=== PATIENT | female | born 1965 | race Caucasian/White ===

== ENCOUNTER 2017-12-24 16:26 | Emergency (ER) | payer OTHER, SELFPAY ==
[2017-12-24 16:32] VITALS: BP 174/100; PULSE 79; RESP 20; TEMP 36.4; O2SAT 98; BMI 29.2
[2017-12-24 17:02] VITALS: BP 147/74; PULSE 72; RESP 18; O2SAT 100
--- NOTE | 2017-12-24 17:22 | DI.RAD.S_ITS ---
PROCEDURE: XR CHEST 2V INDICATIONS: chest pain TECHNIQUE: 2 views of the chest were acquired. COMPARISON: None. FINDINGS: Surgical changes and devices: None. Lungs and pleura: No pleural effusions or pneumothorax. Lungs are clear. Mediastinum: Mediastinal contours are normal. Heart size is normal. Bones and chest wall: No suspicious bony abnormalities. Soft tissues appear unremarkable. IMPRESSION: No acute cardiopulmonary findings. Dictated by: Denise Arevalo M.D. on 12/24/2017 at 17:58 Approved by: Denise Arevalo M.D. on 12/24/2017 at 17:58
[2017-12-24 17:39] LABS: Add Manual Diff / Slide Review NO; Basophils Percent Auto 0.7 % (0-2); Eosinophils Percent Auto 0.9 % (2-4); Hematocrit 42.5 % (36-46); Hemoglobin 14.7 g/dL (12.0-16.0); Mean Corpuscular HGB Conc 34.6 % (30-36); Mean Corpuscular Hemoglobin 30.6 PG (26-34); Mean Corpuscular Volume 88.7 fL (80-100); Monocytes Percent Auto 5.7 % (3-14); Neutrophils Absolute Auto 4000 /uL (3000-5900); Neutrophils Percent Auto 62.7 % (50-75); Platelet Count 278 X10^3/uL (150-400); Red Blood Cell Count 4.79 X10^6/uL (4.0-5.2); Red Cell Distribution Width 13.3 % (11.6-14.8); White Blood Cell Count 6.4 X10^3/uL (4.5-11.0)
[2017-12-24 17:44] LABS: BUN Creatinine Ratio 18.6 (6-22); Blood Urea Nitrogen 13 mg/dL (7-17); Calcium 9.4 mg/dL (8.4-10.2); Carbon Dioxide 24 mmol/L (22-32); Chloride 105 mmol/L (98-107); Estimated Glomerular Filt Rate > 60.0 mL/min (>60); Glucose 104 mg/dL (70-100); HEMOLYSIS < 15 (0-50); Potassium 3.9 mmol/L (3.4-5.1); Sodium 142 mmol/L (137-145)
[2017-12-24 17:46] VITALS: BP 145/84; PULSE 65; RESP 19; O2SAT 99
[2017-12-24 17:57] LABS: Troponin I < 0.012 ng/mL (0.01-0.034)
[2017-12-24 18:11] VITALS: BP 149/78; PULSE 66; RESP 16; O2SAT 98
[2017-12-24 19:03] VITALS: BP 169/81; PULSE 75; RESP 17; O2SAT 97
--- NOTE | 2017-12-24 19:07 | ED.CHESTPAIN ---
HPI - Chest Pain General Chief Complaint: Chest Pain Stated Complaint: CHEST PAIN,ELEVATED BP,SOB Time Seen by Provider: 12/24/17 16:55 History of Present Illness HPI narrative: HPI 52-year-old female presents for evaluation of approximately one day of poorly characterized chest pain, of sensation anxiety, and a concern that she may have elevated blood pressure. Patient unable to identify any provoking or relieving factors. Notes that she is under increased significant stress recently due to the anticipated impending of an aunt. Patient is a history of hypertension, is taking one of her to prescribed anti-hypertensives. Also notes a history of anxiety. Patient denies recent immobilization, leg trauma, estrogen use, surgery in the last four weeks, hemoptysis, or malignancy in the last 6 months. M/S/F/SocHx notable for: please see HPI; remainder reviewed with patient and in chart. ROS: Negative constitutional, eye, cardiovascular, pulmonary, GI, , MSK, skin, neurologic, psychiatric, endocrine unless noted in the HPI. Exam Gen: Pleasant, non-toxic appearing, resting comfortably. HEENT: NC, AT, PEERL, EOMI. Resp: Clear to auscultation bilaterally, normal work of breathing. Card: RRR with no M/R/G, no crackles in lung bases, no pedal edema, no JVD appreciated. GI: NT/ND Vascular: Both ankles, calves, and thighs of equal size, no calf tenderness to palpation bilaterally. MSK: No chest wall TTP. No visible deformities, strength and tone WNL. Skin: Normal color with no visible lesions. Neuro: AO x 3, no facial asymmetry, vision and hearing WNL. Psych: Mood and affect appropriate. Labs / Imaging (pertinent): WBC 6.4, Hb 14.7, Na 142, K 3.9. Troponin <0.012 EKG: SR at 78 bpm, no DC segment depressions, no new ST segment changes, new LBBB, or T-wave changes that would suggest acute ischemia. CXR: No acute cardiopulmonary disease process. MDM Previous chart, nursing note, and vitals reviewed. A: 52-year-old female presents for evaluation of approximately one day of poorly characterized chest pain, of sensation anxiety, and a concern that she may have elevated blood pressure. DDx and Evaluation: * ACS - doubt ACS given a non-ischemic EKG and a negative troponin greater than six hours from maximal symptom onset. * UA - unlikely given the atypical history and alternate diagnosis. HEART score 2 (Hx - 0, EKG - 0, age - 1, risk factors - 1, troponin - 0; 30 day MACE: less than or equal to 1.7%). * Pericarditis - consider pericarditis unlikely given the lack of DC segment depressions as well as the absence of diffuse ST-segment elevations, lack of reduction of pain when supine, and lack of a friction rub. * Myocarditis - unlikely given the negative troponin and an EKG without characteristic DC-segment or ST-segment changes. * Dissection - dissection is unlikely given symptoms, and lack of mediastinal widening. * PE - low clinical suspicion given history and alternate diagnosis, further risk stratification (e.g.) Well's not indicated. * Mediastinal Air - no evidence by CXR or auscultation. * Pneumothorax - no evidence by CXR or physical exam. * MSK - doubt given lack of reproducibility on exam. * Endocarditis - no identifiable risk factors, patient afebrile, no new murmurs appreciated on exam; doubt. * GI (Esophageal rupture, GERD) - esophageal rupture effectively excluded given the lack of mediastinal widening, non-toxic appearance, and lack of identifiable risk factors.. ED Course: Vital signs remained stable and within clinically acceptable limits. Disposition: Discharge with PCP follow up. Return to care precautions given verbally and in writing. Impression: Chest Pain. (please reference below for remainder of encounter information) Related Data Home Medications Medication Instructions Recorded Confirmed amlodipine [Norvasc] #0 02/23/16 amlodipine [Norvasc] 10 mg PO QDAY #0 07/22/16 metoprolol succinate [Toprol XL] 50 mg PO QDAY #0 07/22/16 Allergies Allergy/AdvReac Type Severity Reaction Status Date / Time Sulfa (Sulfonamide Allergy Mild Verified 12/24/17 16:38 Antibiotics) [SULFA (SULFONAMIDE ANTIBIOTICS)] [facility] Social History Smoking Status: Never smoker Exam Initial Vital Signs Initial Vital Signs: Vital Signs Temperature 97.6 F 12/24/17 16:32 Pulse Rate 79 12/24/17 16:32 Respiratory Rate 20 12/24/17 16:32 Blood Pressure 174/100 H 12/24/17 16:32 Pulse Oximetry 98 12/24/17 16:32 Course Orders Ordered: ED Orders 12/24/17 17:05 Basic Metabolic Panel Stat Complete Blood Count AUTO DIFF Stat Troponin I Stat 12/24/17 17:22 XR chest 2V Stat Vital Signs - 8 hr 12/24/17 16:32 12/24/17 17:02 12/24/17 17:46 Temperature 97.6 F Pulse Rate 79 72 65 Respiratory Rate 20 18 19 Blood Pressure 174/100 H Blood Pressure [Right Arm] 147/74 H 145/84 H Pulse Oximetry 98 100 99 12/24/17 18:11 12/24/17 19:03 Temperature Pulse Rate 66 75 Respiratory Rate 16 17 Blood Pressure Blood Pressure [Right Arm] 149/78 H 169/81 H Pulse Oximetry 98 97 MDM - Chest Pain Lab Data Result diagrams: 12/24/17 17:05 12/24/17 17:05 Lab Results 12/24/17 12/24/17 Range/Units 17:05 17:05 WBC 6.4 (4.5-11.0) X10^3/uL RBC 4.79 (4.0-5.2) X10^6/uL Hgb 14.7 (12.0-16.0) g/dL Hct 42.5 (36-46) % MCV 88.7 (80-100) fL MCH 30.6 (26-34) PG MCHC 34.6 (30-36) % RDW 13.3 (11.6-14.8) % Plt Count 278 (150-400) X10^3/uL Neut % (Auto) 62.7 (50-75) % Lymph % (Auto) 30.0 (25-40) % Harmon % (Auto) 5.7 (3-14) % Eos % (Auto) 0.9 L (2-4) % Baso % (Auto) 0.7 (0-2) % Neut # (Auto) 4000 (5780-4741) /uL Sodium 142 (137-145) mmol/L Potassium 3.9 (3.4-5.1) mmol/L Chloride 105 (98-107) mmol/L Carbon Dioxide 24 (22-32) mmol/L BUN 13 (7-17) mg/dL Creatinine 0.70 (0.52-1.04) mg/dL Estimated GFR > 60.0 (>60) mL/min BUN/Creatinine Ratio 18.6 (6-22) Glucose 104 H (70-100) mg/dL Calcium 9.4 (8.4-10.2) mg/dL Troponin I < 0.012 (0.01-0.034) ng/mL Discharge Plan Departure Prescriptions: No Action amlodipine [Norvasc] 5 MG tablet Qty: 0 RF: 0 metoprolol succinate [Toprol XL] 50 MG tablet extended release 24 hr 50 mg PO QDAY Qty: 0 RF: 0 amlodipine [Norvasc] 5 MG tablet 10 mg PO QDAY Qty: 0 RF: 0
[2017-12-24 19:34] VITALS: BP 137/80; PULSE 73; RESP 18; O2SAT 99
== END 2017-12-24 19:35 | disposition home or self-care (01) ==
PROVIDERS: Emergency Provider Emergency Medicine; PCP Family Medicine
DX: R07.9 Chest pain, unspecified (principal)
CPT/HCPCS: 36591; 71046; 80048; 84484; 85025; 93005; 99283; 99285

== ENCOUNTER 2020-07-30 20:38 | Observation (INO) | payer OTHER, SELFPAY ==
[2020-07-30] VITALS (8 sets, daily range): BP systolic 125–167; BP diastolic 59–93; PULSE 64–82; RESP 14–28; TEMP 36.8; O2SAT 98–100; BMI 28.3
--- NOTE | 2020-07-30 20:55 | DI.CT.S_ITS ---
PROCEDURE: CT STROKE INDICATIONS: right arm heavy,tingling lips earlier TECHNIQUE: Noncontrast 4.5 mm thick angled axial sections acquired from the foramen magnum to the vertex, with coronal reformats. For radiation dose reduction, the following was used: automated exposure control, adjustment of mA and/or kV according to patient size. COMPARISON: None. FINDINGS: Image quality: Excellent. CSF spaces: Basal cisterns are patent. No extra-axial fluid collections. Ventricles are normal in size and shape. Brain: No midline shift. No intracranial masses or hemorrhage. Mina-white matter interface is normal. Skull and face: Calvarium and visualized facial bones are intact, without suspicious lesions. Sinuses: Visualized sinuses and mastoids are clear. IMPRESSION: No acute intracranial abnormality. This study fulfills neurological imaging criteria for inclusion or exclusion of acute stroke therapies based on available published neurological imaging guidelines. Dictated by: Jose Del Valle M.D. on 07/30/2020 at 21:34 Approved by: Jose Del Valle M.D. on 07/30/2020 at 21:34
[2020-07-30 21:00] LABS: Add Manual Diff / Slide Review NO; Basophils Absolute Auto 100 /uL (0-100); Basophils Percent Auto 0.9 % (0-2); Eosinophils Absolute Auto 200 /uL (0-450); Eosinophils Percent Auto 2.4 % (2-4); Hematocrit 42.2 % (36-46); Hemoglobin 14.3 g/dL (12.0-16.0); Lymphocytes Absolute Auto 2600 /uL (1100-4500); Mean Corpuscular Hemoglobin 30.5 PG (26-34); Mean Corpuscular Volume 89.8 fL (80-100); Monocytes Absolute Auto 400 /uL (0-900); Monocytes Percent Auto 6.6 % (3-14); Neutrophils Absolute Auto 3300 /uL (1500-7000); Neutrophils Percent Auto 50.1 % (50-75); Platelet Count 299 X10^3/uL (150-400); Red Cell Distribution Width 13.1 % (11.6-14.8); White Blood Cell Count 6.5 X10^3/uL (4.5-11.0)
[2020-07-30 21:10] LABS: Prothrombin Time 11.5 SECONDS (10.1-12.7)
[2020-07-30 21:13] LABS: Blood Urea Nitrogen 16 mg/dL (7-17); Calcium 9.7 mg/dL (8.4-10.2); Carbon Dioxide 26 mmol/L (22-32); Chloride 104 mmol/L (98-107); Estimated Glomerular Filt Rate > 60.0 mL/min (>60); Glucose 117 mg/dL (70-100); PTT Partial Thromboplastin Tim 35 SECONDS (26.4-36.2); Potassium 4.1 mmol/L (3.4-5.1); Sodium 137 mmol/L (137-145)
[2020-07-30 21:21] LABS: HEMOLYSIS 58 (0-50)
[2020-07-30] MEDS: SODIUM CHLORIDE 0.9% 1,000 ML 150 ML IV (21:38)
--- NOTE | 2020-07-30 22:04 | ED.NEUROSD ---
HPI - Neuro Symptoms/Deficit General Chief Complaint: Neuro Symptoms/Deficit Stated Complaint: elevated BP, shivering, rt arm numbness Time Seen by Provider: 07/30/20 20:40 Source: patient Mode of arrival: Ambulatory Limitations: no limitations History of Present Illness HPI Narrative: 55-year-old female nonsmoker with history of hypertension and anxiety presents with her in the chief complaint of neurologic symptoms that started just prior to arrival. She was driving her car when she noted to have some tingling and heaviness of her right arm, stating it felt like it was hard to use. She feels slightly dizzy and states this is not due to any change of position, moving her head and not affected by closing her eyes. She denies any blurred vision, trouble with speech or other symptoms. Her right arm weakness had improved prior to her arrival. She denies any recent injury or trauma. She has had no fever chills. She denies any neck pain. Onset (ago): hour(s) Timing confirmed by: spouse Location: right arm Severity: mild Quality: weak and numb Relieving factors: none Exacerbating factors: none Context: sudden onset On Anticoagulants: No Associated symptoms: denies other symptoms Treatments Prior to Arrival: none Related Data Home Medications Medication Instructions Recorded Confirmed amlodipine [Norvasc] 10 mg PO QDAY #0 07/22/16 07/31/20 metoprolol succinate [Toprol XL] 25 mg PO QDAY #0 07/22/16 07/31/20 Allergies Allergy/AdvReac Type Severity Reaction Status Date / Time Sulfa (Sulfonamide Allergy Mild Verified 07/30/20 20:50 Antibiotics) [SULFA (SULFONAMIDE ANTIBIOTICS)] Review of Systems Constitutional Constitutional: Denies chills, Denies fatigue, Denies fever(s), Denies frequent falls, Denies lethargy and Reports weakness Eyes Eyes: Denies change in vision, Denies eye discharge, Denies irritation and Denies loss of vision ENT Ears, Nose, Mouth, and Throat: Denies change in voice, Denies dizziness, Denies neck pain, Denies sore throat and Denies throat swelling Cardiovascular Cardiovascular: Denies chest pain, Denies irregular heart rhythm, Denies lightheadedness, Denies palpitations, Denies dyspnea, Denies dyspnea on exertion and Denies orthopnea Respiratory Respiratory: Denies cough, Denies dyspnea, Denies dyspnea on exertion and Denies wheezing Gastrointestinal Gastrointestinal: Denies abdominal pain, Denies change in bowel habits, Denies diarrhea, Denies nausea and Denies vomiting Musculoskeletal Musculoskeletal: Denies neck pain and Reports numbness Integumentary/Breasts Skin/Breast: Denies pruritus, Denies erythema, Denies rash and Denies wounds Neurologic Neurologic: Denies behavioral changes, Denies confusion, Denies dizziness, Denies frequent falls, Denies loss of vision, Reports numbness and Reports weakness Psychiatric Psychiatric: Denies anxiety, Denies behavioral changes, Denies confusion, Denies depression, Denies homicidal ideation and Denies suicidal ideation Endocrine Endocrine: Denies fatigue, Denies flushing and Denies palpitations Hematologic/Lymphatic Hematologic/Lymphatic: Denies easy bruising On Anticoagulants: No Allergic/Immunologic Allergic/Immunologic: Denies urticaria, Denies throat swelling and Denies wheezing Patient History Social History household members: spouse Smoking Status: Never smoker alcohol intake: current Smoking Status: Never smoker alcohol intake frequency: 0-2 drinks per day Substance Use Type: does not use Exam Narrative Exam Narrative: GENERAL: [55] year old patient appears stated age. Well-nourished, well-developed patient, in mild distress. Anxious HEAD: Atraumatic. Normocephalic. EYES: Pupils equal round and reactive. Extraocular motions intact. No scleral icterus. No injection or drainage. ENT: Nose without bleeding, purulent drainage. Throat without erythema, tonsillar hypertrophy or exudate. Airway patent. NECK: Trachea midline. Non tender CARDIOVASCULAR: Regular rate and rhythm without murmurs, gallops, or rubs. RESPIRATORY: Clear to auscultation. Breath sounds equal bilaterally. No wheezes, rales, or rhonchi. GASTROINTESTINAL: Abdomen soft, non-tender, nondistended. EXTREMITIES: No edema or joint tenderness. BACK: Nontender without deformity or crepitance. No flank tenderness. NEURO: AOx3. SKIN: No rash or erythema of visible areas Initial Vital Signs Initial Vital Signs: Vital Signs Temperature 98.2 F 07/30/20 20:40 Pulse Rate 81 07/30/20 20:40 Respiratory Rate 14 07/30/20 20:40 Blood Pressure 167/93 H 07/30/20 20:40 Pulse Oximetry 99 07/30/20 20:40 Scores ABCD2 Age >= 60 years: no Initial BP. Either SBP >= 140 or DBP >= 90.: yes Clinical features of the TIA: unilateral weakness Duration of symptoms: 10-59 minutes History of diabetes: no ABCD2 Score: 4 NIH Stroke Scale Level of Conciousness: Alert, keenly responsive Ask month/age: Answers both questions correctly. Open/close eyes, close hand: Performs both tasks correctly Best gaze horizontal: Normal Visual briones: No visual loss Facial palsy: Normal symetrical movement Left arm drift: No drift for full 10 sec Right arm drift: No drift for full 10 sec Left leg drift: No drift for full 5 sec Right leg drift: No drift for full 5 sec Limb ataxia: Absent Sensory on face/arms/legs: Normal, no sensory loss Best language: No aphasia, normal Dysarthria: Normal Extinction or inattention: No abnormality Total NIH Stroke scale score: 0 Course Orders Ordered: ED Orders 07/30/20 22:53 COVID19 Stat Sodium Chloride (Normal Saline 0.9%) 1,000 mls @ 150 mls/hr IV CONT IRENE Last Admin: 07/31/20 05:20 Dose: 150 mls/hr Documented by: Infusion: 07/31/20 05:20 Dose: 0 mls/hr Documented by: Infusion: 07/30/20 23:19 Dose: 0 mls/hr Documented by: Admin: 07/30/20 21:38 Dose: 150 mls/hr Documented by: ALBA Discontinued Medications Aspirin (Aspirin 81 Mg Chew Tab) 324 mg PO NOW ONE Stop: 07/30/20 22:49 Last Admin: 07/30/20 22:53 Dose: 324 mg Documented by: ALBA Influenza Virus Vaccine (Influenza Vaccine 0.5 Ml Syringe) 0.5 ml IM .ONCE ONE Stop: 07/30/20 23:44 Consultations Consultation #1: call to oncall provider for PCP. Happy to accept on her service. Vital Signs Vital signs: Vital Signs - 8 hr 07/30/20 22:30 Pulse Rate 76 Respiratory Rate 25 H Blood Pressure 134/68 Pulse Oximetry 99 MDM - Neuro Symptoms/Deficit Lab Data Result diagrams: 07/30/20 20:53 07/30/20 20:53 Labs: Lab Results 07/30/20 07/30/20 07/30/20 Range/Units 20:53 20:53 20:53 WBC 6.5 (4.5-11.0) X10^3/uL RBC 4.70 (4.0-5.2) X10^6/uL Hgb 14.3 (12.0-16.0) g/dL Hct 42.2 (36-46) % MCV 89.8 (80-100) fL MCH 30.5 (26-34) PG MCHC 34.0 (30-36) % RDW 13.1 (11.6-14.8) % Plt Count 299 (150-400) X10^3/uL Neut % (Auto) 50.1 (50-75) % Lymph % (Auto) 40.0 (25-40) % Eagle % (Auto) 6.6 (3-14) % Eos % (Auto) 2.4 (2-4) % Baso % (Auto) 0.9 (0-2) % Neut # (Auto) 3300 (7556-5087) /uL Lymph # (Auto) 2600 (7522-5193) /uL Eagle # (Auto) 400 (0-900) /uL Eos # (Auto) 200 (0-450) /uL Baso # (Auto) 100 (0-100) /uL PT 11.5 (10.1-12.7) SECONDS INR 1.0 (0.9-1.3) APTT 35 (26.4-36.2) SECONDS Sodium 137 (137-145) mmol/L Potassium 4.1 (3.4-5.1) mmol/L Chloride 104 (98-107) mmol/L Carbon Dioxide 26 (22-32) mmol/L BUN 16 (7-17) mg/dL Creatinine 0.80 (0.52-1.04) mg/dL Estimated GFR > 60.0 (>60) mL/min BUN/Creatinine Ratio 20.0 (6-22) Glucose 117 H (70-100) mg/dL Calcium 9.7 (8.4-10.2) mg/dL SARS-CoV-2 (PCR) (Negative) 07/30/20 Range/Units 22:53 WBC (4.5-11.0) X10^3/uL RBC (4.0-5.2) X10^6/uL Hgb (12.0-16.0) g/dL Hct (36-46) % MCV (80-100) fL MCH (26-34) PG MCHC (30-36) % RDW (11.6-14.8) % Plt Count (150-400) X10^3/uL Neut % (Auto) (50-75) % Lymph % (Auto) (25-40) % Eagle % (Auto) (3-14) % Eos % (Auto) (2-4) % Baso % (Auto) (0-2) % Neut # (Auto) (5199-0757) /uL Lymph # (Auto) (6225-8329) /uL Eagle # (Auto) (0-900) /uL Eos # (Auto) (0-450) /uL Baso # (Auto) (0-100) /uL PT (10.1-12.7) SECONDS INR (0.9-1.3) APTT (26.4-36.2) SECONDS Sodium (137-145) mmol/L Potassium (3.4-5.1) mmol/L Chloride (98-107) mmol/L Carbon Dioxide (22-32) mmol/L BUN (7-17) mg/dL Creatinine (0.52-1.04) mg/dL Estimated GFR (>60) mL/min BUN/Creatinine Ratio (6-22) Glucose (70-100) mg/dL Calcium (8.4-10.2) mg/dL SARS-CoV-2 (PCR) Negative (Negative) Urine Dip Bedside Urine Glucose Negative Bedside Urine Bilirubin - Negative Bedside Urine Ketone - Negative Urine Specific [place] 1.010 Bedside Urine Occult Blood - Negative Bedside Urine pH 6.5 Bedside Urine Protein - Negative Bedside Urine Urobilinogen - Negative Bedside Urine Nitrite - Negative Bedside Urine Leukocytes - Negative Esterase Imaging Data CT scan - head: Radiologist's Impression: [address] [id number] Scan ReportSigned Patient: Marilou Zhao LMR#: [id number]: [id number]:[id number]/Sex: 55 / FDate of Service: 07/30/20Loc: EDAccession Number: [id number] Procedure: CT Stroke Ordering Provider: Aravind Herrera D.O. PROCEDURE: CT STROKE INDICATIONS: right arm heavy,tingling lips earlier TECHNIQUE: Noncontrast 4.5 mm thick angled axial sections acquired from the foramen magnum to the vertex, with coronal reformats. For radiation dose reduction, the following was used: automated exposure control, adjustment of mA and/or kV according to patient size. COMPARISON: None. FINDINGS: Image quality: Excellent. CSF spaces: Basal cisterns are patent. No extra-axial fluid collections. Ventricles are normal in size and shape. Brain: No midline shift. No intracranial masses or hemorrhage. Mina-white matter interface is normal. Skull and face: Calvarium and visualized facial bones are intact, without suspicious lesions. Sinuses: Visualized sinuses and mastoids are clear. IMPRESSION: No acute intracranial abnormality. This study fulfills neurological imaging criteria for inclusion or exclusion of acute stroke therapies based on available published neurological imaging guidelines. Dictated by: Jose Del Valle M.D. on 07/30/2020 at 21:34 Approved by: Jose Del Valle M.D. on 07/30/2020 at 21:34 Discharge Plan Departure Patient Disposition: Admitted as Observation Clinical Impression: Transient cerebral ischemia Qualifiers: Transient cerebral ischemia type: unspecified Qualified Code(s): G45.9 - Transient cerebral ischemic attack, unspecified Admit Date/Time: 07/30/20 22:59 Admit Provider: Lolita Berrios
[2020-07-30] MEDS: ASPIRIN 81 MG CHEW TAB 324 MG PO (22:53)
--- NOTE | 2020-07-30 23:05 | PC.NURSE ---
at approx 1630:\ -Hard time catching breathe -She put mask on, mouth started tingling -Heavyness in back of head -Face tingly -Cheeks felt weird like hard to smile -Right arm heavy hx of anxiety with similar symptoms. This time was different due to: -Heaviness -Smiling difficulty -High blood pressure -Right arm heaviness
[2020-07-30 23:15] LABS: COVID19 -Nasal RAPID Negative (Negative)
--- NOTE | 2020-07-31 | DI.US.S_ITS ---
PROCEDURE: US CAROTID DOPPLER BI INDICATIONS: TIA TECHNIQUE: Color and pulse Doppler interrogation was performed of both carotid systems, with image documentation and velocity measurements. COMPARISON: [facility], [place], CT STROKE, 07/30/2020, 20:55. FINDINGS: Stenosis calculations are based on SRU (Society of Radiologists in Ultrasound) criteria. The flow velocities and the arterial waveforms are normal within both carotid arterial systems. Atherosclerotic plaque is seen on both sides. The estimated degree of internal carotid artery stenosis is less than 50%. Antegrade flow is confirmed within both vertebral arteries. IMPRESSION: No hemodynamically significant stenosis is seen. Atherosclerotic plaque is noted bilaterally. Dictated by: Ritesh Abdi M.D. on 07/31/2020 at 8:55 Approved by: Ritesh Abdi M.D. on 07/31/2020 at 8:55
--- NOTE | 2020-07-31 02:58 | PC.ADMIT ---
[id number] Admission Note: Pt arrived to unit at 23:38 stable in wc, able to ambulate from wc to bed. Oriented to room. Adminstered IV fluids as prescribed. Placed on telemetry, NSR. Pt in no cardiovascular or respiratory distress, AOx4, good affect slightly anxious. Pt reports history of anxiety and similar symtpoms w/out arm heaviness or facial tingling. 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 Lung sounds CTA throughout, pedal and radial pulses palpable equal 2+. NIHSS 0, fully oriented, vision briones good, able to lift and maintain limb elevation for the appropriate amount of time, CN intact. BS present all 4 quadrants. Reported no genitourinary problems. Skin dry elastic intact w/ slight bruise present on R inner thigh. The patient, Marilou Zhao, 55 y/o, was given written information regarding hospital policies, unit procedures and contact persons. Patient's smoking status: Never smoker. Vital Signs - 8 hr 07/30/20 20:40 07/30/20 21:17 07/30/20 21:19 Temperature 98.2 F Pulse Rate 81 73 70 Respiratory Rate 14 17 Blood Pressure 167/93 H 136/62 Pulse Oximetry 99 98 99 07/30/20 21:30 07/30/20 22:00 07/30/20 22:30 Temperature Pulse Rate 65 64 76 Respiratory Rate 20 15 25 H Blood Pressure 137/65 125/59 L 134/68 Pulse Oximetry 100 100 99 07/30/20 23:00 07/30/20 23:35 Temperature 98.3 F Pulse Rate 82 79 Respiratory Rate 28 H 18 Blood Pressure 156/73 H 151/68 H Pulse Oximetry 99 98
[2020-07-31 04:00] VITALS: BP 115/61; PULSE 63; RESP 18; TEMP 36.6; O2SAT 98
[2020-07-31] MEDS: SODIUM CHLORIDE 0.9% 1,000 ML 150 ML IV (05:20)
--- NOTE | 2020-07-31 06:44 | P.HP_ITS ---
History of Present Illness History of Present Illness Date Patient Seen: 07/31/20 Time Patient Seen: 06:44 Chief complaint: elevated BP, shivering, rt arm numbness Narrative: 55-year-old female nonsmoker with history of hypertension and anxiety is admitted for observation from the ED complaining of right arm heaviness, numbness, and tingling in the setting of a systolic blood pressure in the 180s. This event occurred just prior to her arrival while driving her car. Associated dizziness that was not secondary to a change in position of her head or closing her eyes. She reports a previous history of panic attacks with ED visits for rule out TIAs. These previous visits did not involve arm symptoms and she says that she felt differently this time. No chest pain, nausea, speech difficulties, fever, chills, or neck pain. No recent injury or trauma. No u nusual anxiety in life right now. Vital signs upon presentation to the ED included a temperature of 98.2, pulse 81, respirations 14, blood pressure 167/93, O2 saturation 99% on room air. After stay in the ED, blood pressure dropped to 134/68 and she was feeling better. ABCD2 score 4, NIH stroke score 0. CT stroke negative. ED administered 1 bag of normal saline, 325 mg of aspirin and flu shot x1. Labs were unremarkable. She has had an uneventful night other than sleeping poorly. This morning, denies any residual arm symptoms and feels back to her baseline. 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 Three children. Patient History Family & Social History Social History: household members spouse Prior Living Arrangements House Safety & Behavioral: Feels Safe in Current Yes Environment Been Physically Hurt or No Threatened By a Person Suicidal Ideation Description None Suicide Plan Description No Plan Tobacco & Substance use: Smoking Status Never smoker alcohol intake current alcohol intake frequency 0-2 drinks per day Substance Use Type does not use Meds Home Medications and Allergies Home Medications Medication Instructions Recorded Confirmed Type amlodipine [Norvasc] 10 mg PO QDAY #0 07/22/16 07/31/20 History metoprolol succinate [Toprol XL] 25 mg PO QDAY #0 07/22/16 07/31/20 History alprazolam 0.25 mg PO BID PRN #30 tab 07/31/20 Rx atorvastatin 40 mg PO BEDTIME #30 tab 07/31/20 Rx Allergies Allergy/AdvReac Type Severity Reaction Status Date / Time Sulfa (Sulfonamide Allergy Mild Verified 07/30/20 20:50 Antibiotics) [SULFA (SULFONAMIDE ANTIBIOTICS)] Review of Systems Review of Systems ROS: Yes All systems reviewed with the patient and are negative except as otherwise documented Exam Vital Signs (past 8 hours): - 07/30/20 23:00 07/30/20 23:35 07/31/20 04:00 Temperature 98.3 F 97.9 F Pulse Rate 82 79 63 Respiratory Rate 28 H 18 18 Blood Pressure 156/73 H 151/68 H 115/61 Pulse Oximetry 99 98 98 Oxygen Delivery Method Room Air Oxygen Flow Rate 0 Narrative Exam Narrative: GENERAL: Alert and oriented, appearing stated age and in no acute distress. HEENT: Head normocephalic/atraumatic. Pupils equal, round, and reactive to light and accomodation. Extraocular muscles intact. Tympanic membranes clear. Nasal mucosa moist, septum midline. Oral mucosa moist, no lesions. Neck soft and supple, no lymphadenopathy. LUNGS: Clear to ausculation bilaterally, no wheezes, rhonchi or rales. CV: Normal S1 and S2 with regular rate and rhythm, no audible murmurs, rubs or gallops. ABDOMEN: Soft, non-tender, non-distended, no organomegaly. Positive bowel sounds. EXTREMITIES: No clubbing, cyanosis, or edema. NEURO: Cranial nerves II through XII grossly intact, no focal deficits. PSYCH: Alert and oriented x 3. SKIN: No concerning lesions. Objective Labs Result Diagrams: 07/31/20 08:29 07/31/20 08:29 Labs: Laboratory Results - last 24 hr 07/30/20 07/30/20 07/30/20 20:53 20:53 20:53 WBC 6.5 RBC 4.70 Hgb 14.3 Hct 42.2 MCV 89.8 MCH 30.5 MCHC 34.0 RDW 13.1 Plt Count 299 Neut % (Auto) 50.1 Lymph % (Auto) 40.0 [place] % (Auto) 6.6 Eos % (Auto) 2.4 Baso % (Auto) 0.9 Neut # (Auto) 3300 Lymph # (Auto) 2600 [place] # (Auto) 400 Eos # (Auto) 200 Baso # (Auto) 100 PT 11.5 INR 1.0 APTT 35 Sodium 137 Potassium 4.1 Chloride 104 Carbon Dioxide 26 BUN 16 Creatinine 0.80 Estimated GFR > 60.0 BUN/Creatinine Ratio 20.0 Glucose 117 H Calcium 9.7 SARS-CoV-2 (PCR) 07/30/20 22:53 WBC RBC Hgb Hct MCV MCH MCHC RDW Plt Count Neut % (Auto) Lymph % (Auto) [place] % (Auto) Eos % (Auto) Baso % (Auto) Neut # (Auto) Lymph # (Auto) [place] # (Auto) Eos # (Auto) Baso # (Auto) PT INR APTT Sodium Potassium Chloride Carbon Dioxide BUN Creatinine Estimated GFR BUN/Creatinine Ratio Glucose Calcium SARS-CoV-2 (PCR) Negative Assessment & Plan Assessment & Plan narrative: 1. TIA Plan: Will proceed with stroke protocol MRI, echo, and carotid Doppler as well as close observation. Anticipate discharge later today if all reassuring. Anticipate starting statin upon discharge. 2. Hypertension, chronic Plan: Continue home medications. 3. Anxiety, chronic Plan: Supportive care. 4. Hyperlipidemia, chronic, untreated Plan: Atorvastatin 40 mg p.o. q.h.s.. DVT prophylaxis: SCDs Code: Full COVID: Negative Quality VTE Deep Vein Thrombosis/Pulmonary Embolism Present on Admission: No
--- NOTE | 2020-07-31 06:45 | DI.MRI.S_ITS ---
PROCEDURE: MR STROKE Pre- and post-contrast brain MRI, non-contrast brain MR angiogram, pre- and postcontrast neck MR angiogram INDICATIONS: r/o CVA TECHNIQUE: Brain: Noncontrast axial T1 spin echo, axial T2 fast spin echo, sagittal and axial FLAIR, coronal T2 fast spin echo, axial gradient echo, axial diffusion and ADC through the brain. After the administration of contrast, axial 3D VIBE of the cranial vasculature and brain. Brain MRA: Non-contrast 3-D time of flight MR angiogram, with multiple fffdbnh-ciyrvgghn-cgyudyveyb (MIP) reformats performed. Neck MRA: Axial and sagittal TruFISP through the neck. Coronal dynamic MR angiogram during administration of contrast in the arterial and venous phases, with 3-dimenstional hmfnoes-uosdgcsic-rqlihxmqrf (MIP) reformats constructed from subtraction images. COMPARISON: [facility], CT, CT STROKE, 07/30/2020, 20:55. [facility], US, US CAROTID DOPPLER BI, 07/31/2020, 9:04. FINDINGS: Image quality: Excellent. BRAIN: CSF spaces: Ventricles are normal in size and shape. Basal cisterns are patent. No extra-axial fluid collections. Brain: No intracranial bleeds or mass effects. Mina-white matter interface is normal. Diffusion weighted images show no acute ischemic insults. Brainstem appears normal. Normal intravascular flow voids are present. No abnormal intracranial enhancement. Skull and face: Calvarial marrow signal is normal. Orbits appear normal. Sinuses: Mild bilateral maxillary sinus mucosal thickening. Mild bilateral ethmoid sinus mucosal thickening. Mastoids are clear. BRAIN MR ANGIOGRAM: Anterior circulation: Intracranial internal carotid arteries are normal in size and enhancement. The flow within the paired anterior cerebral arteries is normal and symmetric. The flow within the middle cerebral arteries is normal and symmetric. The anterior communicating artery is seen. No stenoses, occlusions, or aneurysms. Posterior circulation: The visualized portions of the vertebral arteries demonstrate normal caliber, and join to form a normal appearing basilar artery. The flow within the posterior cerebral arteries is normal and symmetric. No stenoses, occlusions, or aneurysms. NECK MR ANGIOGRAM: Carotids: Great vessels demonstrate a conventional anatomy as they arise from the aortic arch. The origins of the common carotid arteries appear patent. The calibers and courses of both common carotid arteries are normal. The bifurcation regions appear normal bilaterally. There is roughly 40% stenosis of the proximal right internal carotid artery. Left internal carotid artery is patent. Posterior circulation: The origins of the vertebral arteries appear patent. More superior portions of both vertebral arteries demonstrate normal course and caliber, and join to form a normal appearing basilar artery. Miscellaneous: Subclavian arteries appear patent. Pre-contrast images through the neck show no soft tissue abnormalities. IMPRESSION: BRAIN MRI: 1. No acute process. No recent infarct. 2. Sinus disease. BRAIN MR ANGIOGRAM: Negative cerebral MR angiography. NECK MR ANGIOGRAM: 1. 40% right internal carotid artery stenosis. No left internal carotid artery stenosis. 2. Patent bilateral vertebral arteries. Dictated by: Jose Del Valle M.D. on 07/31/2020 at 11:14 Approved by: Jose Del Valle M.D. on 07/31/2020 at 11:20
[2020-07-31 08:00] VITALS: BP 129/76; PULSE 65; RESP 19; TEMP 37; O2SAT 98
[2020-07-31 08:41] LABS: Add Manual Diff / Slide Review NO; Basophils Absolute Auto 0 /uL (0-100); Basophils Percent Auto 0.7 % (0-2); Eosinophils Absolute Auto 100 /uL (0-450); Eosinophils Percent Auto 2.1 % (2-4); Hematocrit 38.7 % (36-46); Hemoglobin 12.9 g/dL (12.0-16.0); Lymphocytes Absolute Auto 2200 /uL (1100-4500); Lymphocytes Percent Auto 40.3 % (25-40); Mean Corpuscular HGB Conc 33.3 % (30-36); Mean Corpuscular Hemoglobin 29.9 PG (26-34); Mean Corpuscular Volume 89.9 fL (80-100); Monocytes Absolute Auto 400 /uL (0-900); Monocytes Percent Auto 6.9 % (3-14); Neutrophils Absolute Auto 2700 /uL (1500-7000); Platelet Count 268 X10^3/uL (150-400); Red Blood Cell Count 4.31 X10^6/uL (4.0-5.2); Red Cell Distribution Width 13.2 % (11.6-14.8); White Blood Cell Count 5.4 X10^3/uL (4.5-11.0)
[2020-07-31 08:54] LABS: BUN Creatinine Ratio 16.4 (6-22); Blood Urea Nitrogen 11 mg/dL (7-17); Calcium 8.5 mg/dL (8.4-10.2); Carbon Dioxide 27 mmol/L (22-32); Chloride 109 mmol/L (98-107); Estimated Glomerular Filt Rate > 60.0 mL/min (>60); Glucose 106 mg/dL (70-100); HEMOLYSIS < 15 (0-50); Potassium 3.8 mmol/L (3.4-5.1); Sodium 139 mmol/L (137-145)
--- NOTE | 2020-07-31 09:48 | PT.IIE ---
Physical Therapy Inpatient Evaluation/Re-Eval M1 PT/OT-IP Prior Functional Status Start: 07/31/20 12:00 Freq: NEEDED Status: Active Protocol: Document 07/31/20 09:48 AB (Rec: 07/31/20 12:14 AB [id number]) Medical Review Prior Functional Status Medical History Reviewed Yes Communication able to make needs known Mobility and Gait pt stated that she is independent with all mobilities and ambulation without AD Social History Household Members spouse Living Arrangements House Number of Floors (Floors) One Floor Number of Stairs To Enter/Railing? 2 steps to enter without rails Home Environment Standard Height Toilet,Walk in Shower M2 PT-IP Current Condition Start: 07/31/20 12:00 Freq: NEEDED Status: Active Protocol: Document 07/31/20 09:48 AB (Rec: 07/31/20 12:14 AB [email or web address]) Physical Therapy Current Condition Current Condition Evaluation Date 07/31/20 Treatment Diagnosis TIA; difficulty in walking Onset Date 07/30/20 M3 PT-IP Subjective Start: 07/31/20 12:00 Freq: NEEDED Status: Active Protocol: Document 07/31/20 09:48 AB (Rec: 07/31/20 12:14 AB [email or web address]) Subjective Physical Therapy Visit Type Type Initial Evaluation Visit Start Time 09:48 Visit Stop Time 10:06 Total Visit Minutes 18 Number of BASS SINGER Visits 0 Physical Therapy Visit Comments Patient Comments pt is agreeable to do PT Therapy Pain Assessment Pain Present Pain Present Denied Pain M4 PT-IP Mobility and Gait Start: 07/31/20 12:00 Freq: NEEDED Status: Active Protocol: Document 07/31/20 09:48 AB (Rec: 07/31/20 12:14 AB [email or web address]) PT-Bed Mobility Assessment Supine to Sit Supine to Sit Independent Sit to Supine Sit to Supine Independent Scooting Scooting to Edge of Bed Independent PT-Transfer Assessment Sit to and From Stand Sit to and from Stand Independent Equipment Transfer Assistive Device None,Gait Belt Orthotic/Prosthetic Devices or Brace: No Transfers Transfer Destination Toilet Transfer Technique ambulated without AD Transfer Ability Level of Assist Independent Comments Mobility Comments pt completed bed mobility independent. able to ambulate in room independent without LOB. agreed to do stairs and ambulated towards the stairs without AD independent. completed stairs initially using L rail but repeated without rails independent. pt ambulated back to her room. Tinetti balance assessment conducted. requested to use the toilet independent. pt requested to go back to bed afterwards and completed sit to supine independent. call light and table placed within reach. Gait Assessment Gait Gait Assistance Required: Independent Distance (Feet) 100 Able to Maintain Weight Bearing Status Yes During Gait Assistive Devices Assistive Device None,Gait Belt Orthotic/Prosthetic Devices or Brace: No Gait Deviations General Gait Pattern Within Normal Limits Stair Climbing Assessment Evaluation Level of Assist On Stairs Independent Devices Stair Climbing Assistive Devices None,Left Railing Technique/Endurance Stair Climbing Direction Ascend and Descend Stair Climbing Technique Step Over Step Number of Steps Climbed 3 Query Text: Stair Climbing Set # Repetitions (reps) 2 PT-Balance Assessment Sitting Balance and Reactions Static Sitting Balance Ability Normal Dynamic Sitting Balance Ability Normal Standing Balance and Reactions Static Standing Balance Ability Good Dynamic Standing Balance Ability Good Device Used without AD Functional Assessments Functional Tests Tinetti Balance and Gait Assessment total score: 28/28: low fall risk M5 PT-IP Objective Assessments Start: 07/31/20 12:00 Freq: NEEDED Status: Active Protocol: Document 07/31/20 09:48 AB (Rec: 07/31/20 12:14 AB [email or web address]) Orientation Orientation/Cognition Level of Alertness Alert Orientation Name,Age,Birthday,Month,Date, Year,Day of Week,Place, Situation Language Function Ability No Deficits Noted Safety Awareness Understands Safety Issues Memory Description No Deficits Noted Gross Range of Motion Lower Extremity ROM Assessment Within Functional Limits Strength Lower Extremity Strength Assessment Within Functional Limits Coordination Assessment Gross Coordination Gross Coordination WNL Sensation Assessment Sensation Gross Sensation WNL Muscle Tone Muscle Tone WNL Yes M6 PT-IP Treatment Start: 07/31/20 12:00 Freq: NEEDED Status: Active Protocol: Document 07/31/20 09:48 AB (Rec: 07/31/20 12:14 AB [email or web address]) Physical Therapy Treatment Education Education Provided Safety M7 PT-IP Assessment and Plan Start: 07/31/20 12:00 Freq: NEEDED Status: Active Protocol: Document 07/31/20 09:48 AB (Rec: 07/31/20 12:14 AB [email or web address]) PT Summary Assessment and Plan Potential Rehabilitation Potential Good Status of Condition at Evaluation Stable Summary Assessment Summary PT eval completed and pt is independent with all mobilities without AD. No further PT intervention indicated at this time. informed pt and pt agreed. Frequency of Treatment Frequency Of Treatment Discharge Recommendations To Nursing Amount of Assist Needed Independent Discharge Recommendations PT Discharge Recommendations Home Transportation Needs at Discharge Private Vehicle
[2020-07-31] MEDS: METOPROLOL SUCCINATE 25MG 25 EACH PO (11:24)
[2020-07-31] MEDS: AMLODIPINE 10MG 10 EACH PO (11:24)
[2020-07-31 12:00] VITALS: BP 128/86; PULSE 74; RESP 17; TEMP 36.7; O2SAT 96
--- NOTE | 2020-07-31 12:41 | CM.IDA ---
Initial DCP Assessment Note Patient is a 55 yo female, resident of [place]. Patient presents w/ sx of TIA. PCP: Arnold Deleon Payer: [place] Reviewed chart. Patient has been seen by physical therapy and cleared for return home, patient is indp at baseline and indp today in room. MRI confirms no acute process. Symptoms have resolved. Patient expects to return home later today. No needs expected from this CREDIT RISK OFFICER, will remain available in case this changes today. LEI Discharge Planning/Care Management CM Discharge Assessment Start: 07/31/20 12:39 Freq: Status: Active Protocol: Document 07/31/20 12:39 LEI (Rec: 07/31/20 12:41 LEI [id number]) Discharge Planning Assessment Assigned Psychopaedic Nurse PEDRO PABLO Hebert DPOA/Assigned Designee Name Bhupinder Zhao, spouse Contact Information [phone] Advance Directives? No History Provided By Patient,Medical Record Prior Living Arrangements House Household Members spouse Type of transportation used prior to Drives own vehicle admit Comment Self Employed Willing to Return to Facility? No Independent with ADL's Yes Is patient alert and oriented? Yes Caregiver for Another No Barriers to Discharge No Discharge Plan Home Transportation Arrangement Spouse/family
--- NOTE | 2020-07-31 13:02 | PC.NURSE ---
Addendum entered by Mary Ellen Waller R.N. 07/31/20 14:44: Patient refused Flu vaccine at this time. IV removed, patient tolerated. Patient has no complaints or concerns at this time. Verbalized she will make follow up appointment with her PCP. Patient discharged via wheelchair. Original Note: Patient A/Ox4. Denies pain. IV infusing NS per MD order, R AC, patent, dsg CDI. Patient denies feelings of numbness, heaviness or tingling in UE. Lungs clear, pulses equal bilaterally, tele on. Ambulating independently in the room. Voiding in the restroom. Reports BM earlier this morning. Denies Dizziness or lightheadedness with ambulation. Patient becoming tearful at times this morning, reports anxiety regarding tests, procedures and possible outcomes. Would have preferred her morning BP medications at 0800. This RN spoke to MD over the phone regarding patients medications. Home medications verified by pharmacy and administered to patient after her return from her MRI. Patient reports decreasing anxiety with discussion and medication administration.
--- NOTE | 2020-07-31 13:05 | P.DS_ITS ---
History of Present Illness History of Present Illness Date Patient Seen: 07/31/20 Time Patient Seen: 13:05 Chief complaint: elevated BP, shivering, rt arm numbness Narrative: 55-year-old female nonsmoker with history of hypertension and anxiety is admitted for observation from the ED complaining of right arm heaviness, numbness, and tingling in the setting of a systolic blood pressure in the 180s. This event occurred just prior to her arrival while driving her car. Associated dizziness that was not secondary to a change in position of her head or closing her eyes. She reports a previous history of panic attacks with ED visits for rule out TIAs. These previous visits did not involve arm symptoms and she says that she felt differently this time. No chest pain, nausea, speech difficulties, fever, chills, or neck pain. No recent injury or trauma. No unusual anxiety in life right now. Vital signs upon presentation to the ED included a temperature of 98.2, pulse 81, respirations 14, blood pressure 167/93, O2 saturation 99% on room air. After stay in the ED, blood pressure dropped to 134/68 and she was feeling better. ABCD2 score 4, NIH stroke score 0. CT stroke negative. ED administered 1 bag of normal saline, 325 mg of aspirin and flu shot x1. Labs were unremarkable. She has had an uneventful night. This morning, denies any residual arm symptoms and feels back to her baseline. Discharge Providers Provider Date of admission: 07/30/20 22:59 Discharge Date: 07/31/20 Primary care physician: Arnold Deleon MD Consults: 07/31/20 06:49 Consult to Physical Therapy Evaluate & Treat Comment: Physician Instructions: Evaluate and Treat Discharge provider: Lolita Berrios MD Summary Hospital Course Discharge Diagnosis: 1. TIA 2. Hypertension, chronic 3. Anxiety, chronic Hospital Course: Unremarkable. On day of discharge, MR stroke protocol and Doppler ultrasound were negative. She is afebrile with stable vital signs throughout. Echo was not able to be completed but as patient is completely asymptomatic, discussed completing that as an outpatient since she does not have a cardiac history. She was very reassured by her negative MRI and carotid ultrasound studies and will complete her echo as an outpatient. Follow-up with Dr. Deleon in 1-2 weeks. Time spent on Discharge and Coordination of post-hospital care: 35 minutes Status at Discharge Cognitive/behavioral status at discharge: at baseline, oriented Functional status at discharge: independent ambulation Overall status at discharge: patient is back to baseline Exam Vital Signs (past 8 hours): - 07/31/20 08:00 07/31/20 12:00 Temperature 98.6 F 98.0 F Pulse Rate 65 74 Respiratory Rate 19 17 Blood Pressure 129/76 128/86 Pulse Oximetry 98 96 Oxygen Delivery Method Room Air Oxygen Flow Rate 0 Narrative Exam Narrative: GENERAL: Alert and oriented, appearing stated age and in no acute distress. HEENT: Head normocephalic/atraumatic. Pupils equal, round, and reactive to light and accomodation. Extraocular muscles intact. Tympanic membranes clear. Nasal mucosa moist, septum midline. Oral mucosa moist, no lesions. Neck soft and supple, no lymphadenopathy. LUNGS: Clear to ausculation bilaterally, no wheezes, rhonchi or rales. CV: Normal S1 and S2 with regular rate and rhythm, no audible murmurs, rubs or gallops. ABDOMEN: Soft, non-tender, non-distended, no organomegaly. Positive bowel sounds. EXTREMITIES: No clubbing, cyanosis, or edema. NEURO: Cranial nerves II through XII grossly intact, no focal deficits. PSYCH: Alert and oriented x 3. SKIN: No concerning lesions. Objective Labs Result Diagrams: 07/31/20 08:29 07/31/20 08:29 Labs: Laboratory Results - last 24 hr 07/30/20 07/30/20 07/30/20 20:53 20:53 20:53 WBC 6.5 RBC 4.70 Hgb 14.3 Hct 42.2 MCV 89.8 MCH 30.5 MCHC 34.0 RDW 13.1 Plt Count 299 Neut % (Auto) 50.1 Lymph % (Auto) 40.0 [place] % (Auto) 6.6 Eos % (Auto) 2.4 Baso % (Auto) 0.9 Neut # (Auto) 3300 Lymph # (Auto) 2600 [place] # (Auto) 400 Eos # (Auto) 200 Baso # (Auto) 100 PT 11.5 INR 1.0 APTT 35 Sodium 137 Potassium 4.1 Chloride 104 Carbon Dioxide 26 BUN 16 Creatinine 0.80 Estimated GFR > 60.0 BUN/Creatinine Ratio 20.0 Glucose 117 H Calcium 9.7 SARS-CoV-2 (PCR) 07/30/20 07/31/20 07/31/20 22:53 08:29 08:29 WBC 5.4 RBC 4.31 Hgb 12.9 Hct 38.7 MCV 89.9 MCH 29.9 MCHC 33.3 RDW 13.2 Plt Count 268 Neut % (Auto) 50.0 Lymph % (Auto) 40.3 H [place] % (Auto) 6.9 Eos % (Auto) 2.1 Baso % (Auto) 0.7 Neut # (Auto) 2700 Lymph # (Auto) 2200 [place] # (Auto) 400 Eos # (Auto) 100 Baso # (Auto) 0 PT INR APTT Sodium 139 Potassium 3.8 Chloride 109 H Carbon Dioxide 27 BUN 11 Creatinine 0.67 Estimated GFR > 60.0 BUN/Creatinine Ratio 16.4 Glucose 106 H Calcium 8.5 SARS-CoV-2 (PCR) Negative [facility] Social History household members: spouse Smoking Status: Never smoker alcohol intake: current Discharge Plan Discharge Plan Patient Disposition: Home Discharge orders & Medications Prescriptions: New alprazolam 0.25 mg tablet 0.25 mg PO BID PRN (Reason: anxiety attack) Qty: 30 RF: 0 Continued metoprolol succinate [Toprol XL] 50 MG tablet extended release 24 hr 25 mg PO QDAY Qty: 0 RF: 0 amlodipine [Norvasc] 5 MG tablet 10 mg PO QDAY Qty: 0 RF: 0 Follow up/Referrals: Arnold Deleon MD [Primary Care Provider] - Diet/Activity/Treatments Diet: Diet as Tolerated Activity: As tolerated Skin/Wound/Dressing Care Report to your healthcare provider any signs of infection, such as:: chills, fever and increased pain Discharge Data Primary Care Provider: Arnold Deleon Attending Provider: Lolita Berrios VTE Deep Vein Thrombosis/Pulmonary Embolism Present on Admission: No
== END 2020-07-31 14:40 | disposition home or self-care (01) ==
LOC: ED 22:55 → AC 23:00
PROVIDERS: Admitting Provider Student in an Organized Health Care Education/Training Program; Emergency Provider Emergency Medicine; PCP Family Medicine; Referring Provider Emergency Medicine; Visit Provider Student in an Organized Health Care Education/Training Program
DX: G45.9 Transient cerebral ischemic attack, unspecified (principal); R42 Dizziness and giddiness; R20.0 Anesthesia of skin; I10 Essential (primary) hypertension; F41.9 Anxiety disorder, unspecified; E78.5 Hyperlipidemia, unspecified; Z20.822 Contact with and (suspected) exposure to COVID-19
CPT/HCPCS: 36415; 70450; 70548; 70553; 80048; 81003; 85025; 85610; 85730; 87635; 93005; 93880; 96360; 96361; 97161; 99282; 99284; C9803; G0378

== ENCOUNTER → 2020-10-07 08:24 | Outpatient (CLI) | payer OTHER, SELFPAY ==
[2020-07-30 23:28] VITALS: BMI 28.3
[2020-10-07] MEDS: COVID-19 VACC #1, MRNA(MOD) 100 MCG/0.5 ML VIAL IM (08:41)
== END ==
PROVIDERS: PCP Family Medicine; Visit Provider Internal Medicine
DX: Z23 Encounter for immunization (principal)
CPT/HCPCS: 0011A; 91301

== ENCOUNTER → 2020-11-04 08:30 | Outpatient (CLI) | payer OTHER, SELFPAY ==
[2020-07-30 23:28] VITALS: BMI 28.3
[2020-11-04] MEDS: COVID-19 VACC #2, MRNA(MOD) 100 MCG/0.5 ML VIAL IM (08:37)
== END ==
PROVIDERS: PCP Family Medicine; Visit Provider Internal Medicine
DX: Z23 Encounter for immunization (principal)
CPT/HCPCS: 0012A; 91301

== ENCOUNTER → 2022-12-21 13:31 | Outpatient (CLI) | payer OTHER, SELFPAY ==
[2020-07-30 23:28] VITALS: BMI 28.3
--- NOTE | 2022-12-21 | DI.RAD.S_ITS ---
PROCEDURE: XR THORACIC SPINE 3V INDICATIONS: Dorsalgia, unspecified TECHNIQUE: 3 views of the thoracic spine were acquired. COMPARISON: [facility], CR, XR CHEST 2V, 12/24/2017, 17:16. FINDINGS: Bones: No fractures or dislocations. No suspicious bony lesions. Mild compression fracture of T7, T8 and T9. 12 pairs of ribs are noted, and appear intact where visualized. Soft tissues: No paravertebral stripe thickening. IMPRESSION: Mild compression fractures in midthoracic spine from certain chronicity. If clinically indicated, MRI may be helpful. Dictated by: Dexter Castillo M.D. on 12/22/2022 at 9:47 Approved by: Dexter Castillo M.D. on 12/22/2022 at 9:48
== END ==
LOC: RAD 13:35
PROVIDERS: PCP Family Medicine; Referring Provider Family Medicine; Visit Provider Family Medicine
DX: M48.54XA Collapsed vertebra, not elsewhere classified, thoracic region, initial encounter for fracture (principal); M54.9 Dorsalgia, unspecified
CPT/HCPCS: 72072

== ENCOUNTER → 2022-12-22 10:15 | Outpatient (CLI) | payer OTHER, SELFPAY ==
[2020-07-30 23:28] VITALS: BMI 28.3
--- NOTE | 2022-12-22 10:32 | DI.DEXA.S_ITS ---
Bone Density Report Name: LISSETH LOU Age: 57 Sex: Female Ethnicity: White Date of : 1965 Indication: postmenopausal; screening for osteoporosis; Referring Provider: EDUIN SIEGEL Study: Bone densitometry was performed. Exam Date: December 22, 2022 Accession number: [id number] Bone Density: Region BMD T-score Z-score Classification AP Spine(L1-L4) 0.746 -2.7 -1.4 Osteoporosis Femoral Neck (Left) 0.634 -1.9 -0.7 Osteopenia Total Hip (Left) 0.846 -0.8 0.1 Normal Femoral Neck (Right) 0.657 -1.7 -0.5 Osteopenia Total Hip (Right) 0.838 -0.9 0.0 Normal Total Hip Mean 0.842 -0.9 0.1 Normal World Health Organization criteria for BMD impression classify patients as: Normal (T-score at or above -1.0), Osteopenia (T-score between -1.0 and -2.5), or Osteoporosis (T-score at or below -2.5). 10-year Fracture Risk: FRAX not reported because: Some T-score for Spine Total or Hip Total or Femoral Neck at or below -2.5 Impression: The patient has osteoporosis, based on the Total Spine T-score. Discussion: INCREASED RISK OF FRACTURE. BONE DENSITY IS UNDESIRABLY LOW AT ONE OR MORE SKELETAL SITES, CONSISTENT WITH POSTMENOPAUSAL OSTEOPOROSIS. This patient's lowest T-score meets the World Health Organization's (WHO) criteria for osteoporosis at one or more sites (T-score -2.5 or below). In untreated patients, the risk of osteoporotic fracture increases approximately two-fold for each 1.0 SD decrease in T-score. Low bone density is not the only risk factor for fracture; also consider factors such as patient's age, frailty or poor health, risk of falling, risk of injury, previous osteoporotic fracture, family history of osteoporosis, cigarette smoking, low body weight, etc. Not everyone with low bone mineral density has osteoporosis; osteomalacia and other metabolic bone disorders should also be considered. Patients who have osteoporosis should be evaluated for specific diseases and conditions (secondary causes) that may cause or contribute to bone loss. The [place] Association [employer] Clinical Endocrinologists (AACE) and National Osteoporosis Foundation (NOF) recommend pharmacologic intervention for all postmenopausal women whose T-score is in this range. The patient should follow a healthful lifestyle (good nutrition with adequate calcium and vitamin D, and appropriate weight-bearing exercise). Follow-Up: Consider a repeat BMD and Vertebral Fracture Assessment (VFA) exam in 2 years or sooner if medically necessary, to reassess this patient's status. Reported by: ELLE SHULTZ M.D. on 12/22/2022 10:41:00 AM.
== END ==
PROVIDERS: PCP Family Medicine; Referring Provider Chiropractor Independent Medical Examiner; Visit Provider Chiropractor Independent Medical Examiner
DX: M99.02 Segmental and somatic dysfunction of thoracic region (principal); M54.6 Pain in thoracic spine; M85.80 Other specified disorders of bone density and structure, unspecified site
CPT/HCPCS: 77080

== ENCOUNTER 2023-09-17 22:04 | Observation (INO) | payer OTHER, SELFPAY ==
[2020-07-30 23:28] VITALS: BMI 28.3
[2023-09-17 22:06] VITALS: BP 181/76; PULSE 97; RESP 18; TEMP 36.4; O2SAT 100; BMI 28.7
--- NOTE | 2023-09-17 22:09 | DI.RAD.S_ITS ---
PROCEDURE: XR CHEST 1V INDICATIONS: chest pain TECHNIQUE: One view of the chest was acquired. COMPARISON: [facility], , XR CHEST 2V, 12/24/2017, 17:16. [facility], , CHEST 1 VIEW, 07/22/2016, 16:02. FINDINGS: Surgical changes and devices: None. Lungs and pleura: Lungs are clear. No pleural effusions or pneumothorax. Mediastinum: Mediastinal contours appear normal. Heart size is normal. Bones and chest wall: No suspicious bony lesions. Overlying soft tissues appear unremarkable. IMPRESSION: No acute cardiopulmonary abnormality is seen. Dictated by: Sim Victor M.D. on 09/17/2023 at 22:59 Approved by: Sim Victor M.D. on 09/17/2023 at 22:59
[2023-09-17] MEDS: ASPIRIN 81 MG CHEW TAB 324 MG PO (22:12)
[2023-09-17 22:21] VITALS: PULSE 85; RESP 13; O2SAT 100
[2023-09-17 22:30] VITALS: BP 144/79; PULSE 88; RESP 17; O2SAT 100
[2023-09-17 22:34] LABS: Add Manual Diff / Slide Review NO; Basophils Absolute Auto 100 /uL (0-100); Eosinophils Absolute Auto 300 /uL (0-450); Eosinophils Percent Auto 3.8 % (2-4); Hemoglobin 14.4 g/dL (12.0-16.0); Lymphocytes Absolute Auto 3800 /uL (1100-4500); Lymphocytes Percent Auto 52.2 % (25-40); Mean Corpuscular HGB Conc 34.3 % (30-36); Mean Corpuscular Volume 87.5 fL (80-100); Monocytes Absolute Auto 500 /uL (0-900); Monocytes Percent Auto 7.6 % (3-14); Neutrophils Absolute Auto 2500 /uL (1500-7000); Neutrophils Percent Auto 35.4 % (50-75); Platelet Count 301 X10^3/uL (150-400); Red Cell Distribution Width 13.5 % (11.6-14.8); White Blood Cell Count 7.2 X10^3/uL (4.5-11.0)
--- NOTE | 2023-09-17 22:35 | ED.CHESTPAIN ---
HPI - Chest Pain General Chief Complaint: Chest Pain Stated Complaint: back and chest pains Time Seen by Provider: 09/17/23 22:35 Source: patient, RN notes reviewed and old records reviewed Mode of arrival: Ambulatory Limitations: no limitations History of Present Illness HPI narrative: 58-year-old female with history of hypertension, dyslipidemia with complaint of substernal chest pain that radiated to her back and neck at 9:00 p.m. this evening. She states she was playing yet see in eating Terese nuts. She felt very short of breath. She did not get sweaty, did not have any nausea or vomiting develop diarrhea later. Did not have any tightness liver throat. No rash or skin changes. Patient states symptoms were quite intense and then have resolved since then. Has not had similar symptoms in the past. Patient states her statin is relatively new. No fevers chills cold cough or congestion. Patient states no prior surgeries. Allergic to sulfa. No tobacco, occasional wine, no recreational drugs. Strong family cardiac history with mom doing a bit [place] in her 50s, 1 brother had a heart transplant for some form of cardiomyopathy and her other brother has had a cardiac stent. Patient follows with Dr. Deleon. States that primary care did attempt to order a stress test as an outpatient but it was refused by insurance. Related Data Home Medications Medication Instructions Recorded Confirmed amlodipine 5 mg tablet (Norvasc) 10 mg PO QDAY ##0 07/22/16 07/31/20 metoprolol succinate 50 mg 25 mg PO QDAY ##0 07/22/16 07/31/20 tablet,extended release 24 hr (Toprol XL) Previous Rx's Medication Instructions Recorded alprazolam 0.25 mg tablet 0.25 mg PO BID PRN anxiety attack 07/31/20 #30 tabs atorvastatin 40 mg tablet 40 mg PO BEDTIME #30 tabs 07/31/20 Allergies Allergy/AdvReac Type Severity Reaction Status Date / Time Sulfa (Sulfonamide AdvReac Mild Nausea Verified 09/17/23 22:06 Antibiotics) [SULFA (SULFONAMIDE ANTIBIOTICS)] Review of Systems Review of Systems ROS Unobtainable: All systems reviewed & are unremarkable except as noted in HPI and below Patient History Social History household members: spouse Smoking Status: Never smoker alcohol intake: current Smoking Status: Never smoker alcohol intake frequency: 0-2 drinks per day Substance Use Type: does not use Exam Narrative Exam Narrative: GENERAL: Alert and oriented x three, well-appearing female in mild distress HEENT: Head normocephalic, atraumatic, EOMI, pupils reactive, face symmetric, moist mucous membranes, no swelling of lips or oropharynx. NECK: Supple, full range of motion CARDIOVASCULAR: Regular rate and rhythm without murmurs, rubs or gallops. No JVD. No edema bilateral lower extremities. RESPIRATORY: Breath sounds equal bilaterally, no wheezes rales or rhonchi. ABDOMEN: Soft, nontender. Normoactive bowel sounds all 4 quadrants. No guarding or rebound, rigidity, no mass : No CVA tenderness EXTREMITIES: Normal range of motion, no clubbing or edema. Neurovascularly intact NEUROLOGICAL: Cranial nerves II through XII grossly intact. Moving all extremities SKIN: Warm, dry, no petechiae, no rashes or lesions. Initial Vital Signs Initial Vital Signs: Vital Signs Temperature 97.6 F 09/17/23 22:06 Pulse Rate 97 H 09/17/23 22:06 Respiratory Rate 18 09/17/23 22:06 Blood Pressure 181/76 H 09/17/23 22:06 Pulse Oximetry 100 09/17/23 22:06 Oxygen Delivery Method Room Air 09/17/23 22:06 Scores HEART Score Heart Score history: Highly Suspicious Heart Score EKG: Significant ST depression Heart Score Age: 45-64 years old Heart Score risk factors: > 3 risk factors or hx of atherosclerotic disease Course Orders Ordered: ED Orders 09/17/23 22:09 XR chest 1V Stat EKG-12 Lead Stat 09/17/23 22:15 Complete Blood Count AUTO DIFF Stat Comprehensive Metabolic Panel Stat Lipase Stat Magnesium Stat PTT Partial Thromboplastin Brant Stat Prothrombin Time INR Stat Troponin & CK Cardiac Panel Stat 09/18/23 00:12 Trop I [Troponin I] Stat Discontinued Medications Aspirin (Aspirin 81 Mg Chew Tab) 324 mg PO NOW ONE Stop: 09/17/23 22:10 Last Admin: 09/17/23 22:12 Dose: 324 mg Documented By: MARILYN Vital Signs Vital signs: Vital Signs - 8 hr 09/17/23 22:06 09/17/23 22:21 09/17/23 22:30 Temperature 97.6 F Pulse Rate 97 H 85 Respiratory Rate 18 13 Blood Pressure 181/76 H 144/79 H Pulse Oximetry 100 100 Oxygen Delivery Method Room Air 09/17/23 22:30 09/17/23 22:44 09/17/23 22:44 Temperature Pulse Rate 88 79 Respiratory Rate 17 17 Blood Pressure 152/79 H Pulse Oximetry 100 99 Oxygen Delivery Method 09/17/23 23:00 09/17/23 23:00 09/17/23 23:30 Temperature Pulse Rate 68 Respiratory Rate 19 Blood Pressure 139/63 121/56 L Pulse Oximetry 99 Oxygen Delivery Method 09/17/23 23:30 09/18/23 00:00 09/18/23 00:00 Temperature Pulse Rate 62 63 Respiratory Rate 9 L 16 Blood Pressure 127/58 L Pulse Oximetry 93 94 Oxygen Delivery Method MDM - Chest Pain Lab Data 09/17/23 22:15 09/17/23 22:15 Labs: Lab Results 09/17/23 09/18/23 Range/Units 22:15 00:12 WBC 7.2 (4.5-11.0) X10^3/uL RBC 4.80 (4.0-5.2) X10^6/uL Hgb 14.4 (12.0-16.0) g/dL Hct 42.0 (36-46) % MCV 87.5 (80-100) fL MCH 30.0 (26-34) PG MCHC 34.3 (30-36) % RDW 13.5 (11.6-14.8) % Plt Count 301 (150-400) X10^3/uL Neut % (Auto) 35.4 L (50-75) % Lymph % (Auto) 52.2 H (25-40) % [place] % (Auto) 7.6 (3-14) % Eos % (Auto) 3.8 (2-4) % Baso % (Auto) 1.0 (0-2) % Neut # (Auto) 2500 (4151-9399) /uL Lymph # (Auto) 3800 (9769-9723) /uL [place] # (Auto) 500 (0-900) /uL Eos # (Auto) 300 (0-450) /uL Baso # (Auto) 100 (0-100) /uL PT 10.5 (9.4-12.5) SECONDS INR 0.9 (0.9-1.3) APTT 38 H (25.1-36.5) SECONDS Sodium 138 (137-145) mmol/L Potassium 3.4 (3.4-5.1) mmol/L Chloride 103 (98-107) mmol/L Carbon Dioxide 22 (22-32) mmol/L BUN 14 (7-17) mg/dL Creatinine 0.74 (0.52-1.04) mg/dL Estimated GFR > 60 (>60) mL/min BUN/Creatinine Ratio 18.9 (6-22) Glucose 102 H (70-100) mg/dL Calcium 9.8 (8.4-10.2) mg/dL Magnesium 2.2 (1.6-2.3) mg/dL Total Bilirubin 0.4 (0.2-1.3) mg/dL AST 32 (14-36) IU/L ALT 36 H (<35) IU/L Alkaline Phosphatase 50 (38-126) U/L Total Creatine Kinase 93 (30-135) U/L Troponin I < 0.012 < 0.012 (0.01-0.034) ng/mL Total Protein 7.9 (6.3-8.2) g/dL Albumin 4.8 (3.5-5.0) g/dL Globulin 3.1 (1.7-4.1) g/dL Albumin/Globulin Ratio 1.5 (1.0-2.8) Lipase 415 H (23-300) U/L Urine Dip Bedside Urine Glucose Negative Bedside Urine Bilirubin - Negative Bedside Urine Ketone +/- 5 Urine Specific [place] 1.025 Bedside Urine Occult Blood - Negative Bedside Urine pH 6.0 Bedside Urine Protein - Negative Bedside Urine Urobilinogen - Negative Bedside Urine Nitrite - Negative Bedside Urine Leukocytes - Negative Esterase Imaging Data Chest x-ray: Radiologist's Impression: Close Chest X-Ray (Signed) Sim Victor - 09/17/23 Bone Densitometry (Signed) Dexter Castillo - 12/22/22 Thoracic Spine X-Ray (Signed) Dexter Castillo - 12/21/22 Brain MRI (Signed) Jose Del Valle - 07/31/20 Carotid Doppler Study (Signed) Ritesh Abdi - 07/31/20 Telemetry Strips 07/30/[address] (Signed) Jose Del Valle - 07/30/20 Chest X-Ray (Signed) Denise Arevalo - 12/24/17 Launch?[facility] [address] [address] XRay Report Signed Patient: Marilou Zhao MR#: [id number] : 1965 Acct:[id number] Age/Sex: 58 / F Date of Service: 09/17/23 Loc: ED Accession Number: [id number] Procedure: XR chest 1V Ordering Provider: Susan Pruitt D.O. PROCEDURE: XR CHEST 1V INDICATIONS: chest pain TECHNIQUE: One view of the chest was acquired. COMPARISON: [facility], CR, XR CHEST 2V, 12/24/2017, 17:16. [facility], CR, CHEST 1 VIEW, 07/22/2016, 16:02. FINDINGS: Surgical changes and devices: None. Lungs and pleura: Lungs are clear. No pleural effusions or pneumothorax. Mediastinum: Mediastinal contours appear normal. Heart size is normal. Bones and chest wall: No suspicious bony lesions. Overlying soft tissues appear unremarkable. IMPRESSION: No acute cardiopulmonary abnormality is seen. Dictated by: Sim Victor M.D. on 09/17/2023 at 22:59 Approved by: Sim Victor M.D. on 09/17/2023 at 22:59 ECG Data Attestation: I personally reviewed and interpreted this ECG as follows: Interpretation: Sinus rhythm rate of 93 [place] 180 QRS 88 QTC 452. Some new depression lateral V5 6. No other ST elevation or depression noted. Patient has prior from 07/30/2020 for comparison. EKG2. Sinus rhythm rate of 61 [place] 194 QRS 80 QTC 4-6. ST depression appears resolved otherwise normal. MDM Narrative Medical decision making narrative: This is a 58-year-old female with history of hypertension dyslipidemia and strong cardiac history who developed sudden-onset substernal chest pain radiating to the back tight and squeezing with shortness of breath that resolved over time. Patient was playing on see when it occurred. Patient is slightly hypertensive upon arrival but improving. No fevers, no tachypnea difficulty with breathing. No cold cough or congestion symptoms. Heart score is CBC shows no significant white count, normal platelets with hemoglobin of 14- coags normal renal function, normal electrolytes, no significant changes to LFTs. Initial troponin is negative. EKG does show some mild ST depression in V5 6 which is new compared to prior. Chest x-ray is negative Troponin was repeated EKG was repeated repeat EKG shows resolution of ST depression. Patient has multiple cardiac risk factors with high-risk family history. Discussed with patient would like to keep for observation and stress testing. Patient states they did try to order an outpatient stress test and was refused by insurance. Patient updated. No additional chest pain since arrival. Had asa 324mg. Spoke with Dr. Franco, accepts for chest pain observation with tele and repeat trop at 0600. Discharge Plan Departure Patient Disposition: Admitted as Observation Clinical Impression: Chest pain Admit Date/Time: 09/18/23 01:03 Admit Provider: Nilsa Franco
[2023-09-17 22:39] LABS: INR 0.9 (0.9-1.3); Prothrombin Time 10.5 SECONDS (9.4-12.5)
[2023-09-17 22:42] LABS: PTT Partial Thromboplastin Tim 38 SECONDS (25.1-36.5)
[2023-09-17 22:44] VITALS: BP 152/79; PULSE 79; RESP 17; O2SAT 99
[2023-09-17 22:44] LABS: Alanine Aminotransferase 36 IU/L (<35); Albumin 4.8 g/dL (3.5-5.0); Albumin Globulin Ratio 1.5 (1.0-2.8); Alkaline Phosphatase 50 U/L (38-126); Aspartate Aminotransferase 32 IU/L (14-36); BUN Creatinine Ratio 18.9 (6-22); Bilirubin Total 0.4 mg/dL (0.2-1.3); Blood Urea Nitrogen 14 mg/dL (7-17); Calcium 9.8 mg/dL (8.4-10.2); Carbon Dioxide 22 mmol/L (22-32); Chloride 103 mmol/L (98-107); Creatine Kinase 93 U/L (30-135); Estimated Glomerular Filt Rate > 60 mL/min (>60); Globulin 3.1 g/dL (1.7-4.1); Glucose 102 mg/dL (70-100); HEMOLYSIS 16 (0-50); Lipase 415 U/L (23-300); Magnesium 2.2 mg/dL (1.6-2.3); Potassium 3.4 mmol/L (3.4-5.1); Sodium 138 mmol/L (137-145); Total Protein 7.9 g/dL (6.3-8.2)
[2023-09-17 22:55] LABS: Troponin I < 0.012 ng/mL (0.01-0.034)
[2023-09-17 23:00] VITALS: BP 139/63; PULSE 68; RESP 19; O2SAT 99
[2023-09-17 23:30] VITALS: BP 121/56; PULSE 62; RESP 9; O2SAT 93
[2023-09-18] VITALS (9 sets, daily range): BP systolic 115–158; BP diastolic 56–82; PULSE 63–80; RESP 13–26; TEMP 36.2–36.8; O2SAT 94–100; BMI 28.7
[2023-09-18 00:44] LABS: Troponin I < 0.012 ng/mL (0.01-0.034)
[2023-09-18 07:11] LABS: Troponin I < 0.012 ng/mL (0.01-0.034)
--- NOTE | 2023-09-18 08:32 | DI.CT.S_ITS ---
PROCEDURE: CT ANGIO CHEST PE PROTOCOL INDICATIONS: chest pain to back TECHNIQUE: After the administration of intravenous contrast, 2 mm thick sections acquired from the pulmonary apices to the posterior costophrenic angles. 3-dimensional maximum intensity projection (MIP) coronal and sagittal reformats were then acquired through the thorax. For radiation dose reduction, the following was used: automated exposure control, adjustment of mA and/or kV according to patient size. COMPARISON: None. FINDINGS: Image quality: Diagnostic. Pulmonary arteries: Pulmonary arteries are normal in size, and demonstrate no intraluminal filling defects to suggest central pulmonary embolism. Lower Neck: No enlarged lymph nodes. Thyroid: No thyroid nodules which require sonographic follow up, per consensus guidelines. Axillae: No enlarged lymph nodes. Chest Wall: Unremarkable. Bones: Chronic appearing compression deformities of the T9, T8 vertebrae. Osteoporosis by Hounsfield units criteria. . Lungs and Pleura: No pneumothorax or pleural effusions. Smooth interstitial thickening and mild bronchial thickening. Heart: Heart size is normal. No pericardial effusion. Thoracic Vessels: No aortic aneurysm. Mediastinum and [place]: No enlarged lymph nodes. Esophagus: No wall thickening. No hiatal hernia. Upper Abdomen: Scattered subcentimeter hypoattenuating liver lesions, too small to characterize by CT but probably small cysts. IMPRESSION: No pulmonary embolus. Mild pulmonary edema. Osteoporosis by Hounsfield units criteria with chronic appearing compression deformities of T8 and T9. Dictated by: Hector Bynum M.D. on 09/18/2023 at 11:35 Approved by: Hector Bynum M.D. on 09/18/2023 at 11:38
--- NOTE | 2023-09-18 08:34 | PM.HP.1 ---
History of Present Illness History of Present Illness Date Patient Seen: 09/18/23 Time Patient Seen: 08:34 Date of Onset of Symptoms: 09/17/23 Chief complaint: back and chest pains Narrative: Patient is a 58-year-old female well known to me with history of hypertension hyperlipidemia and anxiety who presents to the emergency room with severe chest pain. Patient was with friends eating Terese nuts when she started having central chest pain. She describes it as severe no radiation initially felt like she was being crushed by something wrapping around her. Pain eventually went through to her back but did not go to shoulder or jaw. She had no diaphoresis nausea or other change she did have some episodes of diarrhea afterwards. Pain lasted for approximately 1 hour 1 hour and 30 minutes. Due to the pain getting worse she presented to the emergency room. At that point shortly after she got here the pain went away. No other changes. Patient has had a history of previous chest pain. Similar but not as severe. Was treated and treadmill was requested but refused by insurance. We are in the process of dealing with that when she developed this pain. No other changes. Patient has strong family history with brother with heart transplant secondary to ischemic disease and a brother with stents. Mother with heart disease. No other changes. Dad with colon cancer. Past medical history is significant for hyperlipidemia, hypertension, anxiety. [facility] Social History household members: spouse Smoking Status: Never smoker alcohol intake: current Meds Home Medications and Allergies Home Medications Medication Instructions Recorded Confirmed Type amlodipine 5 mg tablet (Norvasc) 10 mg PO QDAY ##0 07/22/16 09/18/23 History metoprolol succinate 50 mg 25 mg PO QDAY ##0 07/22/16 09/18/23 History tablet,extended release 24 hr (Toprol XL) atorvastatin 40 mg tablet 40 mg PO BEDTIME #30 tabs 07/31/20 09/18/23 Rx citalopram 10 mg tablet 10 mg PO DAILY 09/18/23 09/18/23 History lorazepam 0.5 mg tablet 0.5 mg PO PRN PRN Anxiety 09/18/23 09/18/23 History Allergies Allergy/AdvReac Type Severity Reaction Status Date / Time Sulfa (Sulfonamide AdvReac Mild Nausea Verified 09/17/23 22:06 Antibiotics) [SULFA (SULFONAMIDE ANTIBIOTICS)] Review of Systems Review of Systems Narrative: Negative except above. Exam Vital Signs (past 8 hours): - 09/18/23 01:00 09/18/23 01:01 09/18/23 01:01 Temperature Pulse Rate 71 80 Respiratory Rate 13 26 H Blood Pressure 137/63 Pulse Oximetry 98 99 Oxygen Flow Rate 09/18/23 01:30 09/18/23 01:30 09/18/23 02:00 Temperature 98.3 F Pulse Rate 69 78 Respiratory Rate 15 16 Blood Pressure 121/60 158/82 H Pulse Oximetry 95 98 Oxygen Flow Rate 0 09/18/23 06:38 09/18/23 08:00 Temperature 97.1 F L 97.4 F L Pulse Rate 74 65 Respiratory Rate 16 15 Blood Pressure 118/63 117/61 Pulse Oximetry 99 100 Oxygen Flow Rate 0 0 Oxygen Delivery Method Room Air Oxygen Flow Rate 0 Narrative Exam Narrative: Alert intermittently crying female in no acute distress HEENT exam is unremarkable neck supple without adenopathy lungs are clear heart is regular rate and rhythm extremities without edema neurologic exam is normal Objective Labs 09/17/23 22:15 09/17/23 22:15 Labs: Laboratory Results - last 24 hr 09/17/23 09/18/23 09/18/23 22:15 00:12 06:03 WBC 7.2 RBC 4.80 Hgb 14.4 Hct 42.0 MCV 87.5 MCH 30.0 MCHC 34.3 RDW 13.5 Plt Count 301 Neut % (Auto) 35.4 L Lymph % (Auto) 52.2 H [place] % (Auto) 7.6 Eos % (Auto) 3.8 Baso % (Auto) 1.0 Neut # (Auto) 2500 Lymph # (Auto) 3800 [place] # (Auto) 500 Eos # (Auto) 300 Baso # (Auto) 100 PT 10.5 INR 0.9 APTT 38 H Sodium 138 Potassium 3.4 Chloride 103 Carbon Dioxide 22 BUN 14 Creatinine 0.74 Estimated GFR > 60 BUN/Creatinine Ratio 18.9 Glucose 102 H Calcium 9.8 Magnesium 2.2 Total Bilirubin 0.4 AST 32 ALT 36 H Alkaline Phosphatase 50 Total Creatine Kinase 93 Troponin I < 0.012 < 0.012 < 0.012 Total Protein 7.9 Albumin 4.8 Globulin 3.1 Albumin/Globulin Ratio 1.5 Lipase 415 H Assessment & Plan Assessment & Plan narrative: Chest pain. Pretty severe. EKG shows some slight lateral ST depression in V5 and V6. But completely resolved. Patient has had no further pain. Enzymes are negative. We discussed this. Treadmill today. Patient also with severe pain going through to back need to evaluate aorta. CT scan will be obtained. Also in the differential is esophageal spasm. At this point with her strong family history will get treadmill and CT and then follow from there. Already on primary prevention. Elevated lipase. Etiology is unclear but will repeat this morning. Follow from there. Hypertension. Stable at this point. Will hold medicine till after treadmill. Hyperlipidemia. Will hold medicines till after treadmill should be a big deal. Anxiety. Moderately intense today. But she has been well managed. Will continue citalopram after treadmill. Code status full GI prophylaxis not indicated at this time. Disposition. Maybe discharge later today depending on results of tests. The patient in my opinion is high risk and will not be discharged until we get treadmill results. May need further workup depending on those issues and findings.
[2023-09-18 09:01] LABS: Creatine Kinase 59 U/L (30-135); Lipase 91 U/L (23-300)
--- NOTE | 2023-09-18 10:24 | PC.NURSE ---
Addendum entered by Patsy Bello R.N. 09/18/23 14:59: Patient back from stress test and ct. will be here after clinic to look at ct results and stress test results. Original Note: Patient is going down for her stress test now. She denies chest pain thus far and is independent in the room. She will also have a ct scan during this time.
--- NOTE | 2023-09-18 11:56 | CM.DANOTE ---
Patient is a 58 yo female who was admitted OBS on 09/18/23 today for Chest Pain r/o. Pt has PRE DIM for insurance and her PCP is Dr. Arnold Deleon. EMR was reviewed. Per MD, pt with family hx of cardiac issues and admitted for chest pain r/o and plan is Stress Test today and then likely d/c home later today pending results. No discharge barriers identified at this time. SW met bedside with pt and explained role and she confirms she lives at home in [place] with her spouse and both are very active and independent at baseline and denies any hx of HH or SNF and she works at baseline and does not use DME. Pt does not anticipate any d/c needs and preference is to d/c home later today and confirms spouse can transport. Plan: SW to follow closely for stress test results towards plan of d/c home with spouse later today. PEDRO PABLO Cuenca Discharge Planning/Care Management CM Discharge Assessment Start: 09/18/23 11:54 Freq: Status: Active Protocol: Document 09/18/23 11:54 BF (Rec: 09/18/23 11:56 BF [id number]) Discharge Planning Assessment Assigned Avionics System Engineer PEDRO PABLO Lowry DPOA/Assigned Designee Name Spouse Bhupinder Contact Information [phone] Advance Directives? No Advance Directives on File No History Provided By Patient,Medical Record Has Patient been admitted in last 30 No days? Prior Living Arrangements House Household Members spouse Type of transporation used prior to Drives own vehicle admit Independent with ADL's Yes Is patient alert and oriented? Yes Caregiver for Another No Barriers to Discharge No Discharge Plan Home Transportation Arrangement Spouse/family Referrals Initiated None needed Whiteboard Updated in Patient Room with Yes name and ext. # of Avionics System Engineer Review Status In Process Please Provide Date Initial DC 09/18/23 Assessment Was Performed Next Review Type Continued Stay Review
--- NOTE | 2023-09-18 17:55 | PM.DS.1 ---
History of Present Illness History of Present Illness Date Patient Seen: 09/18/23 Time Patient Seen: 17:55 Date of Onset of Symptoms: 09/17/23 Chief complaint: back and chest pains Narrative: Patient is a 58-year-old female well known to me with history of hypertension hyperlipidemia and anxiety who presents to the emergency room with severe chest pain. Patient was with friends eating Terese nuts when she started having central chest pain. She describes it as severe no radiation initially felt like she was being crushed by something wrapping around her. Pain eventually went through to her back but did not go to shoulder or jaw. She had no diaphoresis nausea or other change she did have some episodes of diarrhea afterwards. Pain lasted for approximately 1 hour 1 hour and 30 minutes. Due to the pain getting worse she presented to the emergency room. At that point shortly after she got here the pain went away. No other changes. Patient has had a history of previous chest pain. Similar but not as severe. Was treated and treadmill was requested but refused by insurance. We are in the process of dealing with that when she developed this pain. No other changes. Patient has strong family history with brother with heart transplant secondary to ischemic disease and a brother with stents. Mother with heart disease. No other changes. Dad with colon cancer. Past medical history is significant for hyperlipidemia, hypertension, anxiety. Discharge Providers Provider Date of admission: 09/18/23 01:03 Discharge Date: 09/18/23 Primary care physician: Arnold Deleon MD Discharge provider: Arnold Deleon MD Summary Hospital Course Discharge Diagnosis: Chest pain noncardiac patient was admitted to the hospital after having some slight changes laterally on her EKG. She was with follow-up negative enzymes. EKG normalized completely. No more pain during the hospitalization. Patient's vital signs remained stable. Due to the fact that she had pain going through to her back a CT scan was obtained with no abnormality. Nuclear medicine treadmill completely normal. With no abnormality. Excellent EF. It was felt to be secondary to probable reflux or esophageal spasm. We discussed this. Her pharmacy is not accepting digital prescriptions so we will send him from clinic tomorrow by fax. Patient understands agrees follow-up 1 week Elevated lipase patient had a mild elevation in lipase yesterday no further workup Hypertension patient was stable throughout the course of her admission no further workup. Palpitations stable on metoprolol. Anxiety patient is doing well. On treatment. Hospital Course: Chest pain. Patient was admitted well initially she did have some slight ST depression lateral leads all resolved. CPK was normal. Troponin was normal. Exam Vital Signs (past 8 hours): - 09/18/23 16:27 Temperature 98.2 F Pulse Rate 66 Respiratory Rate 18 Blood Pressure 138/75 Pulse Oximetry 98 Oxygen Flow Rate 0 Oxygen Delivery Method Room Air Oxygen Flow Rate 0 Narrative Exam Narrative: See physical exam from this a.m.. But no change. Objective Labs 09/17/23 22:15 09/17/23 22:15 Labs: Laboratory Results - last 24 hr 09/17/23 09/18/23 09/18/23 22:15 00:12 06:03 WBC 7.2 RBC 4.80 Hgb 14.4 Hct 42.0 MCV 87.5 MCH 30.0 MCHC 34.3 RDW 13.5 Plt Count 301 Neut % (Auto) 35.4 L Lymph % (Auto) 52.2 H [place] % (Auto) 7.6 Eos % (Auto) 3.8 Baso % (Auto) 1.0 Neut # (Auto) 2500 Lymph # (Auto) 3800 [place] # (Auto) 500 Eos # (Auto) 300 Baso # (Auto) 100 PT 10.5 INR 0.9 APTT 38 H Sodium 138 Potassium 3.4 Chloride 103 Carbon Dioxide 22 BUN 14 Creatinine 0.74 Estimated GFR > 60 BUN/Creatinine Ratio 18.9 Glucose 102 H Calcium 9.8 Magnesium 2.2 Total Bilirubin 0.4 AST 32 ALT 36 H Alkaline Phosphatase 50 Total Creatine Kinase 93 59 Troponin I < 0.012 < 0.012 < 0.012 Total Protein 7.9 Albumin 4.8 Globulin 3.1 Albumin/Globulin Ratio 1.5 Lipase 415 H 91 D [facility] Social History household members: spouse Smoking Status: Never smoker alcohol intake: current Discharge Assessment & Plan Assessment and Plan Assessment: Improved Plan of Treatment: Discharge home Discharge Plan Discharge Plan Patient Disposition: Home Discharge orders & Medications Prescriptions: Continued metoprolol succinate [Toprol XL] 50 MG tablet extended release 24 hr 25 mg PO QDAY Qty: 0 Patient Comments: Patient reports 25 mg dosage of metoprolol succinate amlodipine [Norvasc] 5 MG tablet 10 mg PO QDAY Qty: 0 atorvastatin 40 mg tablet 40 mg PO BEDTIME Qty: 30 3RF citalopram 10 mg tablet 10 mg PO DAILY lorazepam 0.5 mg tablet 0.5 mg PO PRN PRN (Reason: Anxiety) Follow up/Referrals: Arnold Deleon MD [Primary Care Provider] - 1 Week (Have patient call for appointment) Discharge Health Status Multidrug resistant organism: No MDRO Diet/Activity/Treatments Diet: Diet as Tolerated Skin/Wound/Dressing Care Report to your healthcare provider any signs of infection, such as:: increased pain Visit Report/Discharge Packet Stand Alone Forms: Patient Portal/API, Stroke Signs & Symptoms Discharge Data Primary Care Provider: Arnold Deleon Attending Provider: Arnold Deleon Admit Date/Time: 09/18/23 01:03
--- NOTE | 2023-09-18 20:56 | DI.NM.S_ITS ---
DATE OF SERVICE: 09/18/2023 PROCEDURE PERFORMED: Exercise treadmill stress and rest myocardial perfusion imaging with gating to assess ejection fraction and regional wall motion. ORDERING PROVIDER: Dr. Nilsa Franco. INDICATIONS: The patient is a 58-year-old female with hyperlipidemia and hypertension, admitted with atypical chest discomfort. CARDIAC STRESS: The patient was able to exercise for 6 minutes and 27 seconds on a standard Sarthak protocol suggesting slightly reduced exercise capacity with an EKTA of +6%, achieving 7.0 METS. She had a normal heart rate response to exercise, achieving a maximum heart rate of 184 BPM (114% of her predicted maximum). She had no chest discomfort or other anginal symptoms. Her resting ECG shows mild ST and T-wave abnormalities in the inferolateral leads that become slightly accentuated with stress, but remain nonspecific. She had occasional isolated PACs and PVCs, predominantly at peak workload, but no complex ectopy. At 5 minutes and 6 seconds of exercise, at a heart rate of 144 BPM, 27.5 millicuries of technetium-99m Myoview was injected and she was imaged 10 minutes later using a gated SPECT acquisition protocol. Earlier in the day while at rest, she was injected with 8.4 millicuries of technetium- 99m Myoview and was imaged 60 minutes later, again using a gated SPECT acquisition protocol. FINDINGS: 1. Raw data. There is fair myocardial tracer uptake, but considerable motion noted which can introduce artifact. Mild breast shadows are noted. The lung/heart ratio is normal at 0.33 with a normal TID ratio of 0.9. 2. Quantitated gated SPECT: Post-stress ejection fraction is 79% without any focal wall motion abnormality and a normal end-diastolic volume of 76 mL. The resting images were unable to be gated. 3. Myocardial perfusion imaging: Post-stress supine images show a fairly normal perfusion pattern without any obvious perfusion defects, supported by normal perfusion imaging in the prone position, which shows a homogeneous pattern of tracer uptake. The resting images show an identical perfusion pattern to the post-stress supine images without any areas of improvement. IMPRESSION: 1. Normal myocardial perfusion study. 2. No evidence for myocardial ischemia or previous myocardial infarction. 3. Normal left ventricular size and systolic function. 4. Slightly reduced exercise capacity without angina and only subtle, nonspecific ST-segment abnormalities. She had occasional PACs and PVCs, but no other ectopy. Marilou Zhao - LOLI/sophie/MOON doc#: [id number]/job#: [id number] dd: 09/18/2023 15:06:00 dt: 09/18/2023 20:39:00 DICTATING MD/COPIES TO: Arnold Phelps MD; Nilsa Franco MD; Arnold Deleon MD COPIES MNE: SADIE; ;
== END 2023-09-18 18:39 | disposition home or self-care (01) ==
LOC: ED 09-18 01:03 → AC 09-18 01:04
PROVIDERS: Admitting Provider Family Medicine; Emergency Provider Emergency Medicine; PCP Family Medicine; Referring Provider Emergency Medicine; Visit Provider Family Medicine
DX: R07.9 Chest pain, unspecified (principal); F41.9 Anxiety disorder, unspecified; I10 Essential (primary) hypertension; R74.8 Abnormal levels of other serum enzymes
CPT/HCPCS: 36415; 71045; 71275; 78452; 80053; 81003; 82550; 83690; 83735; 84484; 85025; 85610; 85730; 93005; 93017; 99284; G0378; A9502; Q9967

== ENCOUNTER → 2023-12-11 09:24 | Outpatient (CLI) | payer OTHER, SELFPAY ==
[2023-09-18 01:58] VITALS: BMI 28.7
--- NOTE | 2023-12-11 | DI.US.S_ITS ---
LIMITED ULTRASOUND OF RIGHT BREAST AND AXILLA: 12/11/2023 CLINICAL: Right axilla tail lump with pain 11-12:00. Comparison is made to exam dated: 12/11/2023 mammogram - [facility]. Real-time and continuous wave Doppler ultrasound of the right breast 11-12 o'clock, and axilla regions were performed. No significant abnormalities were seen sonographically in the right breast or the right axilla. A benign right axillary lymph node is seen on the mammogram. IMPRESSION: BENIGN There is no sonographic evidence of malignancy. A 1 year screening mammogram is recommended. Exam findings were conveyed to the patient. Patient is advised to monitor for significant change. Clinical follow-up as needed. This exam was interpreted at Station ID: [id number]. Electronically Signed By: Kong Robertson M.D. slc/:12/11/2023 10:29:16 letter sent: Normal Exam Ultrasound BI-RADS: 2 Benign
--- NOTE | 2023-12-11 | DI.MG.S_ITS ---
BILATERAL DIGITAL DIAGNOSTIC MAMMOGRAM 3D/2D: 12/11/2023 CLINICAL: Baseline. Lump in axillary tail Right breast. No prior exams were available for comparison. Both breasts are heterogeneously dense, which may obscure small masses (category c / 51-75% glandular tissue). There is a lymph node in the right breast posterior depth superior region seen on the mediolateral oblique view only. This correlates as palpated. No other significant masses, calcifications, or other findings are seen in either breast. IMPRESSION: INCOMPLETE: NEEDS ADDITIONAL IMAGING EVALUATION The benign lymph node in the right axilla is noted. A targeted ultrasound is recommended and will immediately follow. Based on the Tyrer Cuzick model (a risk assessment model) the patient's lifetime risk is 9.5% and her 10 year risk is 3.7%. According to the ACR, ACS, and NCCN guidelines, an annual breast MRI exam along with mammogram is recommended if the patient's lifetime risk is 20% or greater. This exam was interpreted at Station ID: [id number]. NOTE: For mammograms, a report in lay terms will be sent to the patient. Approximately 15% of breast malignancies will not be visualized mammographically. In the management of a palpable breast mass, a negative mammogram must not discourage biopsy of a clinically suspicious lesion. Electronically Signed By: Kong Robertson M.D. slc/:12/11/2023 10:29:51 ACR BI-RADS Category 0: Incomplete [id number]
== END ==
PROVIDERS: PCP Family Medicine; Referring Provider Registered Nurse; Visit Provider Registered Nurse
DX: N63.31 Unspecified lump in axillary tail of the right breast (principal); R92.8 Other abnormal and inconclusive findings on diagnostic imaging of breast; R92.333 Mammographic heterogeneous density, bilateral breasts
CPT/HCPCS: 76642; 77066; G0279

== ENCOUNTER → 2023-12-26 08:09 | Outpatient (CLI) | payer OTHER, SELFPAY ==
[2023-09-18 01:58] VITALS: BMI 28.7
--- NOTE | 2023-12-26 08:10 | DI.ECHO.S_ITS ---
[facility] : : [address] : : [place] : : [id number] : : Phone: [phone] Echocardiogram Report + + :Name: LISSETH LOU Study Date: 12/26/2023 Height: 63 in : :Hospital ReadingLocation: Weight: 163 lb : : Gender: Female BSA: 1.8 m2 : :: 1965 Age: 58 yrs BP: 135/81 mmHg: :Reason For Study: OTHER ILL-DEFINED HEART DISEASE, FAMILY : :HISTORY : :Ordering Physician: MYKEL : :TORI Performed By: Anneliese Suazo : :Referring: TORI HOGUE : + + Interpretation Summary The ejection fraction is estimated to be 60-65%. Diastolic parameters suggest probable normal left ventricular diastolic function and normal filling pressures. The right ventricle is normal in size and function. There is mild mitral regurgitation. There is trace aortic regurgitation. There is mild tricuspid regurgitation. The right ventricular systolic pressure is estimated to be at least 24 mmHg based on an estimated right atrial pressure of 3 mm Hg. Procedure: A two-dimensional transthoracic echocardiogram with color flow and Doppler was performed. The study quality was technically adequate. There is no prior echocardiogram noted for this patient. The patient was in sinus rhythm with heart rates between 62-73 bpm during the exam. Left Ventricle: The left ventricle is normal in size and wall thickness. The ejection fraction is estimated to be 60-65%. Diastolic parameters suggest probable normal left ventricular diastolic function and normal filling pressures. Right Ventricle: The right ventricle is normal in size and function. Atria: The left atrial size is normal. Right atrial size is normal. There is no Doppler evidence for an interatrial shunt. Mitral Valve: The mitral valve leaflets appear mildly thickened, but open well. There is mild mitral regurgitation. Aortic Valve: The aortic valve is trileaflet. The aortic valve opens well. There is no aortic valve stenosis. There is trace aortic regurgitation. Tricuspid Valve: The tricuspid valve is normal in structure and function. There is mild tricuspid regurgitation. The right ventricular systolic pressure is estimated to be at least 24 mmHg based on an estimated right atrial pressure of 3 mm Hg. Pulmonic Valve: The pulmonic valve leaflets are thin and pliable; valve motion is normal. There is mild pulmonic regurgitation. Great Vessels: The aortic root is normal size. The dimensions of the ascending aorta are normal. The IVC is of normal diameter and collapses greater than 50% with a sniff. This suggests a low right atrial pressure of 3 mm Hg. Pericardium/ Pleura There is no pericardial effusion. There is no pleural effusion. MMode/2D Measurements & Calculations LVIDd: 4.7 cm LVOT diam: 2.0 cm LVIDs: 3.0 cm Ao root diam: 3.3 cm FS: 36.8 % asc Aorta Diam: 3.1 cm EPSS: 0.64 cm Ao Arch Diam (Prox Trans): 2.2 cm IVSd: 0.81 cm LVPWd: 0.66 cm LV lai. diameter/BSA (cm/m^2): 2.7 LV sys. diameter/BSA (cm/m^2): 1.7 LA A2 area: 18.7 cm2 RA long axis: 4.2 cm LA A4 area: 13.1 cm2 RA area: 11.6 cm2 LA length (vol): 4.1 cm RA vol: 27.1 ml LA vol: 50.6 ml RA : 15.3 ml/m2 LA vol index: 28.6 ml/m2 IVC diam: 1.4 cm RVD1 (basal): 3.2 cm RVD2 (mid): 2.3 cm TAPSE: 2.1 cm Doppler Measurements & Calculations Ao V2 max: 153.0 cm/sec LVOT Max Kedar: 122.4 cm/sec Ao V2 mean: 106.6 cm/sec LV V1 max P.0 mmHg Ao max P.4 mmHg LV V1 VTI: 22.2 cm Ao mean P.1 mmHg BALDEV(I,D): 2.1 cm2 Ao V2 VTI: 33.3 cm BALDEV(V,D): 2.5 cm2 sev ratio: 0.67 BALDEV indexed to BSA (cm^2/m^2): 1.2 MV E max kedar: 66.3 cm/sec TR max kedar: 229.7 cm/sec MV A max kedar: 64.2 cm/sec TR max P.1 mmHg MV E/A: 1.0 PA V2 max: 94.7 cm/sec Med Peak E' Kedar: 8.1 cm/sec PA V2 mean: 65.5 cm/sec E/E' med: 8.2 PA mean P.9 mmHg Lat Peak E' Kedar: 9.8 cm/sec PA pr(Accel): 29.3 mmHg E/E' lat: 6.7 E/e' average: 7.5 MV dec time: 0.23 sec [facility] 68.2 ml Reading Physician:04:56 PM
== END ==
LOC: ECHO 08:09
PROVIDERS: PCP Family Medicine; Referring Provider Family Medicine; Visit Provider Family Medicine
DX: I08.1 Rheumatic disorders of both mitral and tricuspid valves (principal)
CPT/HCPCS: 93306

== ENCOUNTER → 2024-10-10 07:02 | Outpatient (CLI) | payer OTHER, SELFPAY ==
[2023-09-18 01:58] VITALS: BMI 28.7
--- NOTE | 2024-10-10 07:03 | DI.CT.S_ITS ---
PROCEDURE: CT ABDOMEN PELVIS W CON INDICATIONS: LLQ PAIN TECHNIQUE: After the administration of intravenous contrast, axial sections acquired from the lung bases to the pubic symphysis. Coronal and sagittal reformats were performed. For radiation dose reduction, the following was used: automated exposure control, adjustment of mA and/or kV according to patient size. COMPARISON: None. FINDINGS: Image quality: Diagnostic. Lower Chest: No significant findings. ABDOMEN: Liver: No solid mass. Gallbladder: No radiopaque gallstones or wall thickening. Biliary ducts: No biliary dilation. Pancreas: No ductal dilation. Spleen: Size is within normal limits. Adrenal Glands: No adrenal nodules. Kidneys and Ureters: No hydronephrosis. No solid mass. No complex renal cystic lesion which requires follow up. Stomach and Bowel: Normal colonic caliber, without significant wall thickening. Peritoneum: No abnormal intraperitoneal fluid. No free air. Ventral Wall: No significant ventral hernia. Abdominal Nodes: No retroperitoneal or mesenteric adenopathy by size criteria. Vessels: Aorta and inferior vena cava are normal in size. PELVIS: Pelvic Organs: A large right-sided pelvic cystic structure is present, most likely right ovarian in origin, measuring up to 12.2 cm AP, 10.8 cm transverse, and 14.9 cm craniocaudad. No internal septations are seen but CT scanning can underestimate complexity of cystic structures when compared to accurate assessment by ultrasound. Bladder: No bladder wall thickening, accounting for underdistention. The bladder is deviated leftward by mass effect from the large right-sided pelvic cystic structure but does not appear obstructed. Pelvic Nodes: No enlarged lymph nodes. Miscellaneous: No inguinal hernias are seen. Bones: No aggressive osseous abnormality. IMPRESSION: 1. Very large cystic structure centered in the right pelvis, likely ovarian in origin. As discussed above CT scanning may underestimate the complexity of a cystic structure when compared to accurate assessment by ultrasound and for this reason follow-up gynecological consultation and targeted pelvic ultrasound from both transvaginal and transabdominal approach is recommended. Both benign and malignant neoplasms of the right ovary should be considered. No evidence of metastatic disease. 2. Leftward deviation of the bladder which is not obstructed. No evidence of impingement on the course of the right ureter given absence of hydroureter or hydronephrosis on the right. Dictated by: Girma Tolbert M.D. on 10/10/2024 at 10:16 Approved by: Girma Tolbert M.D. on 10/10/2024 at 10:23
== END ==
LOC: CT 07:02
PROVIDERS: PCP Family Medicine; Referring Provider Family Medicine; Visit Provider Family Medicine
DX: R19.00 Intra-abdominal and pelvic swelling, mass and lump, unspecified site (principal); R10.32 Left lower quadrant pain
CPT/HCPCS: 74177; Q9967

== ENCOUNTER → 2024-10-11 16:33 | Outpatient (CLI) | payer OTHER, SELFPAY ==
[2023-09-18 01:58] VITALS: BMI 28.7
--- NOTE | 2024-10-11 16:34 | DI.US.S_ITS ---
PROCEDURE: US PELVIC COMPLETE INDICATIONS: PELVIC MASS TECHNIQUE: Real-time scanning was performed of the pelvic organs, with image documentation. Additional endovaginal scanning was necessary due to incomplete visualization of the adnexal and endometrial structures by transabdominal scanning. COMPARISON: [facility], CT, CT ABDOMEN PELVIS W CON, 10/10/2024, 8:14. FINDINGS: Uterus: Uterus is anteverted and normal in size at 6.0 x 3.0 x 2.9 cm. T the endometrium is poorly visualized. No distinct mass. Ovaries: Not identified. Within the right adnexal region there is a cystic structure measuring 15.6 x 7.7 x 9.8 cm. No increased vascularity. No visualized solid component. Ovary is not visualized. Other: No pathologic free abdominal or pelvic fluid. IMPRESSION: Ovaries are not visualized. Cystic structure is present in the region the adnexa. While this could represent a very large ovarian cysts, it is somewhat atypical in appearance. Given patient's age, cystic malignancy cannot be definitively excluded. Follow-up evaluation with [facility] MRI protocol is recommended on a nonemergent basis. We strive to produce accurate, complete, and clear reports of imaging services. To assist us in improving patient care, this report was composed using standard report templates and voice recognition software. Therefore, it may contain abnormal punctuation, insertions and/or omissions. Occasional wrong-word or sound-alike substitutions may occur. Though we review the report and make efforts to correct it, we do recommend that the report be read carefully in proper context to recognize any text inaccuracies. Dictated by: Sri Cabrera M.D. on 10/11/2024 at 17:39 Approved by: Sri Cabrera M.D. on 10/11/2024 at 17:42
== END ==
PROVIDERS: PCP Family Medicine; Referring Provider Family Medicine; Visit Provider Family Medicine
DX: R19.00 Intra-abdominal and pelvic swelling, mass and lump, unspecified site (principal)
CPT/HCPCS: 76830; 76856

== ENCOUNTER 2024-10-14 13:01 | Day surgery (SDC) | payer OTHER, SELFPAY ==
[2024-10-14] VITALS (7 sets, daily range): BP systolic 123–150; BP diastolic 75–80; PULSE 66–94; RESP 15–16; TEMP 36.1–36.5; O2SAT 97–99; BMI 28.7; BMI 28.5
--- NOTE | 2024-10-14 | PATH_ITS ---
Note [facility] Accession Number: [id number] TESTS RESULT FLAG UNITS REF RANGE LAB Clinician Provided Cytology Information No. of containers..01 Other (Miscellaneous) Source: RIGHT RETROPERITONEAL CYST FLUID DIAGNOSIS: RIGHT RETROPERITONEAL CYST FLUID INCONCLUSIVE. THIS INTERPRETATION INCLUDES EVALUATION OF A CELL BLOCK. HYPOCELLULAR SPECIMEN WITH RARE ATYPICAL EPITHELIAL CELL GROUPS; INSUFFICIENT ATYPICAL CELLS FOR ANCILLARY STUDIES. Pathologist ICD10: K68.9 Signed out by: Gladis Spangler MD, Pathologist NPI- [id number] Performed by: Joey Caldwell, Cooling Machine Operator ([facility]) Gross description: 30 CC, YELLOW, CLEAR RECEIVED: FRESH IN BLUE CAP CONTAINER.VO /VDU 10/15/2024 1031 Local FLAG LEGEND: L-Low Normal,H-High Normal,LL-Alert Low,HH-Alert High <-Panic Low,>-Panic High,A-Abnormal,AA-Critical Abnormal Performed at: 01 =Z [facility] [address], [place] [address] Neymar Hicks MD, Performed at: 01 [facility] [address] [place] [address] [address], [place], [place] [id number] MD Neymar Hicks MD Phone: [phone]
--- NOTE | 2024-10-14 | PATH_ITS ---
[facility] Accession Number: [id number] No. of containers..01 Tissue . 01 Material submitted: . endometrium - ENDOMETRIAL CURETTINGS . 01 Diagnosis: ENDOMETRIUM, CURETTAGE: Minute fragments of unrmarkable squamous and endocervical tissue; no endometrial tissue present for evaluation. [facility] 10/24/2024 1123 Local . 01 Electronically signed: . Cheryl Craven DO, Pathologist NPI- [id number] . 01 Gross description: . ENDOMETRIAL CURETTINGS: Received in formalin are minute fragments of mucoid and hemorrhagic material measuring 0.2 x 0.2 x 0.1 cm in aggregate. Submitted in toto in 1 cassette. /VINICIO 10/15/20242106 Local . 01 Pathologist provided ICD-10: N95.0 . 01 CPT . 011354 Specimen Comment: A courtesy copy of this report has been sent to [phone] Performed at: [address] [facility] [address], [place], [place] [id number] MD Neymar Hicks MD Phone: [phone]
[2024-10-14] MEDS: LACTATED RINGERS 1,000 ML 21 ML IV ×2 (14:23→17:16)
--- NOTE | 2024-10-14 15:25 | PM.PREOP ---
Pre-operative Note Interval Note History & Physical reviewed/Exam performed by Physician: Yes Changes to H&P: No H&P completed within 30 days and has changed as indicated here:: 10/14/24
[2024-10-14] MEDS: ACETAMINOPHEN IV 1,000 MG/100 ML VIAL 400 MG IV (15:55)
--- NOTE | 2024-10-14 16:09 | SUR.OPER ---
Lithotomy on padded OR bed. [place] Pad Positioner under torso. Head on pillow, arms padded and tucked at sides. Legs secured in padded yellow fins stirrups.
--- NOTE | 2024-10-14 17:18 | PM.GYNOP.1 ---
Operative Date/Time/Diagnoses Date of procedure: 10/14/24 Time of procedure: 17:18 Post-op diagnosis: same Procedure & Clinicians Procedure: Procedures Operation Date: 10/14/24 14:00 Actual Procedure Side Surgeon p DIAGNOSTIC LAPAROSCOPY WITH ASPIRATION OF RIGHT RETROPERITONEAL CYST AND LYSIS OF BOWEL TO RIGHT ADENEXAL ADHESIONS Bilateral Rosa Munguia MD s Hysteroscopy D&C Rosa Munguia MD Indications: 59-year-old with a 15 cm right adnexal mass. Postmenopausal bleeding, unable to evaluate endometrial lining on ultrasound Surgeon: Rosa Munguia Anesthesia Type: General and Local Operative Notes Findings: Five week size anteverted uterus 15 cm right retroperitoneal cyst Normal tubes Normal ovaries Normal liver and gallbladder Normal appendix Thin bowel to right adnexal adhesions Closure Type: primary Specimen(s): endometrial curettings and other (Cyst fluid to cytology) Estimated blood loss (mL): 5 Blood products transfused: none Procedure in detail: After informed consent was obtained, the patient was taken to the operating room where she was placed in the dorsal supine position. After adequate general endotracheal anesthesia was achieved, she was placed in the dorsal lithotomy position, and prepped and draped in the usual sterile fashion. A time-out was performed. A bivalve speculum was placed into the vagina and the anterior lip of the cervix was grasped with a single-tooth tenaculum. The cervical os was sequentially dilated until the Zumi uterine manipulator could pass easily into the endometrial cavity. Single-tooth tenaculum was removed from the anterior lip of the cervix. The bivalve speculum was removed from the vagina. Attention was then turned to the abdomen where 6 cc of 0.5% Marcaine with epinephrine were injected above the umbilical fold. A 5 mm incision was made. The Veress needle was placed into the peritoneal cavity, and its placement confirmed by aspiration and drop test. The abdominal cavity was insufflated with 3.3 L of CO2. The Veress needle was removed, and a 5 mm trocar was placed without difficulty. The cuff was inflated with 3 cc of air. Two other incisions were made 4 cm lateral to the midline after 6 cc of 0.5% Marcaine with epinephrine were injected. Two 5 mm trocars were placed under direct visualization. The cuff was inflated with 3 cc of air. The uterus was lifted out of the pelvis. The left tube and ovary were found to be normal. On the right side there were some thin filmy adhesions between the bowel and the right adnexa. These were taken down with the endo Cassy without difficulty. The large cyst was found to be retroperitoneal. It was not contiguous with the ovary or the tube. The point aspirator was guided into the cystic structure. 30 cc of clear fluid were aspirated and sent to cytology. The point aspirator was then attached to suction tubing and proximally 300 cc of clear fluid were drained. There was no bleeding noted. There was peristalsis of the ureter on that side at the completion. The appendix, gallbladder, and liver were examined and were found to be normal. The bowel was normal. The instruments were removed from the abdomen. The CO2 was allowed to escape. The incisions were repaired with 4-0 Monocryl in a subcuticular fashion. Steri-Strips and Allevyn dressings were placed. Attention was then turned to the vagina where the Zumi uterine manipulator was removed from the uterus. The cervix was dilated to the # 9 Hegar dilator. The hysteroscope passed easily into the endometrial cavity. The cavity appeared normal. Both fallopian tube ostia were observed. No polyps or fibroids. The hysteroscope was removed. Gentle sharp curettage was performed yielding a small amount of endometrial curettings. The instruments were removed from the uterus. The single-tooth tenaculum was removed from the anterior lip of the cervix. The bivalve speculum was removed from the vagina. Sponge, lap, and instrument counts were correct x2. The patient tolerated the procedure well, and was taken to PACU in stable condition. Complications: none Post-operative Condition: stable Disposition: PACU Plan for aftercare: Home after recovery
== END 2024-10-14 18:30 | disposition home or self-care (01) ==
PROVIDERS: PCP Family Medicine; Referring Provider Obstetrics & Gynecology; Visit Provider Obstetrics & Gynecology
PROC: (CPT 49322; principal; 2024-10-14 14:00)
PROC: 0UDB8ZZ Extraction of Endometrium, Via Natural or Artificial Opening Endoscopic (ICD-10-PCS; CPT 58558; 2024-10-14 14:00)
DX: N95.0 Postmenopausal bleeding (principal); K66.0 Peritoneal adhesions (postprocedural) (postinfection); K68.9 Other disorders of retroperitoneum
CPT/HCPCS: 49322; 58558; J0131; J1100; J2250; J2405; J2704; J3010

== ENCOUNTER → 2024-10-31 08:04 | Outpatient (CLI) | payer OTHER, SELFPAY ==
[2024-10-14 09:06] VITALS: BMI 28.7
--- NOTE | 2024-10-31 08:05 | DI.CT.S_ITS ---
PROCEDURE: CT ABDOMEN PELVIS W CON INDICATIONS: To assess if fluid collection remains after to laparoscopic right adnexal cyst drainage. TECHNIQUE: After the administration of intravenous contrast, axial sections acquired from the lung bases to the pubic symphysis. Coronal and sagittal reformats were performed. For radiation dose reduction, the following was used: automated exposure control, adjustment of mA and/or kV according to patient size. COMPARISON: [facility], US, US PELVIC COMPLETE, 10/11/2024, 16:42. [facility], CT, CT ABDOMEN PELVIS W CON, 10/10/2024, 8:14. FINDINGS: Image quality: Diagnostic. Lower Chest: No significant findings. ABDOMEN: Liver: No solid mass. Gallbladder: No radiopaque gallstones or wall thickening. Biliary ducts: No biliary dilation. Pancreas: No ductal dilation. Spleen: Size is within normal limits. Adrenal Glands: No adrenal nodules. Kidneys and Ureters: No hydronephrosis. No solid mass. No complex renal cystic lesion which requires follow up. Stomach and Bowel: Normal colonic caliber, without significant wall thickening. Peritoneum: No abnormal intraperitoneal fluid. No free air. Ventral Wall: No significant ventral hernia. Abdominal Nodes: No retroperitoneal or mesenteric adenopathy by size criteria. Vessels: Aorta and inferior vena cava are normal in size. PELVIS: Pelvic Organs: Unremarkable. Bladder: No bladder wall thickening, accounting for underdistention. Pelvic Nodes: No enlarged lymph nodes. Miscellaneous: No inguinal hernias are seen. The laparoscopic right adnexal cyst drainage has accomplished virtually complete resolution of the abnormal fluid collection that was large on the right. There is what appears to be the remaining cyst wall as a thin structure after drainage, measuring up to 8 cm craniocaudad and approximately 8-10 mm in maximal transverse dimension best visualized on coronal re-formation imaging series 4, image 57. This would not be accessible for safe CT or ultrasound-guided access. Bones: No aggressive osseous abnormality. IMPRESSION: Virtually complete emptying of a previously large right adnexal region cystic structure previously documented by CT scanning 10/10/24. The cyst wall remains, measuring approximately 8 cm craniocaudad and 8-10 mm maximal transverse dimension without significant residual internal fluid. Note: Patient experienced sneezing after contrast infusion, which stopped after approximately 5 minutes. No respiratory symptoms or rash. This is considered a mild allergic reaction to contrast infusion and was explained to the patient and is documented in the medical record. Dictated by: Girma Tolbert M.D. on 10/31/2024 at 10:28 Approved by: Girma Tolbert M.D. on 10/31/2024 at 10:39
[2024-10-31 08:38] LABS: Estimated Glomerular Filt Rate > 60 mL/min (>60)
== END ==
PROVIDERS: PCP Family Medicine; Referring Provider Specialist; Visit Provider Specialist
DX: Z01.812 Encounter for preprocedural laboratory examination (principal); R18.8 Other ascites; N94.89 Other specified conditions associated with female genital organs and menstrual cycle
CPT/HCPCS: 36415; 74177; 82565; Q9967

== ENCOUNTER → 2024-11-28 08:28 | Outpatient (CLI) | payer OTHER, SELFPAY ==
[2024-10-14 09:06] VITALS: BMI 28.7
[2024-11-28 09:45] LABS: Free T3, Triiodothyronine Free 3.58 pg/mL (2.77-5.27); Free T4, Direct Thyroxine 0.79 ng/dL (0.78-2.19)
[2024-11-28 09:58] LABS: Thyroid Stimulating Hormone 2.44 uIU/mL (0.47-4.68)
[2024-11-29 06:37] LABS: Thyroid Peroxidase Antibodies 97 IU/mL (0-34)
== END ==
PROVIDERS: PCP Family Medicine; Referring Provider Obstetrics & Gynecology; Visit Provider Obstetrics & Gynecology
DX: R18.8 Other ascites (principal); R53.83 Other fatigue
CPT/HCPCS: 36415; 84439; 84443; 84481; 86376; 86800